=== PATIENT | female | born 1950 | race Caucasian/White ===

== ENCOUNTER → 2018-02-23 07:02 | Outpatient (CLI) | payer MEDICARE, SELFPAY ==
--- NOTE | 2018-02-23 | DI.ECHO.S_ITS ---
[facility] +---------+ : : [address] : [address] [place] : : : : [id number] : : : : Phone: [phone]+ Echocardiogram Report + + :Name: KALEB ROJO Study Date: 02/23/2018 Height: 67 in : :[facility] Exam Location: [facility] Weight: 168 lb : : Gender: Female BSA: 1.9 m2 : :: 1950 Age: 67 yrs BP: 210/100 mmHg: :Reason For Study: TIA : :Ordering Physician: : :Gerardo Friedman Performed By: Brigette Page : + + Interpretation Summary Left ventricular systolic function is normal without focal wall motion abnormalities with the the ejection fraction visually estimated to be 60-65%. There is borderline concentric left ventricular hypertrophy. There has been no significant change since the previous study. The right ventricle is normal in size and function and is unchanged compared to the previous study. The right ventricular systolic pressure is estimated to be at least 34 mmHg based on an estimated right atrial pressure of 3 mm Hg, and is similar compared to the previous study. Both atria are severely dilated. Measurements from the previous study are not available to allow for comparison. There is moderate aortic valve sclerosis that is slightly progressive compared to the previous study but there is no hemodynamically significant aortic stenosis. There is no other significant valvular heart disease. The ascending aorta is at the upper limits of normal in size. The patient was noted to be hypertensive during the study but was asymptomatic. A message was left with Dr. Friedman' office. Procedure: A two-dimensional transthoracic echocardiogram with color flow and Doppler was performed. The study quality was technically adequate. Comparison is made with the echocardiogram of 09/17/2008. The patient was in normal sinus rhythm during the exam. Left Ventricle: The left ventricle is normal in size. There is borderline concentric left ventricular hypertrophy. Left ventricular systolic function is normal without focal wall motion abnormalities. The ejection fraction is estimated to be 60-65%. Diastolic function could not be accurately assessed due to contradictory data. There has been no significant change since the previous study. Right Ventricle: The right ventricle is normal in size and function. This is unchanged compared to the previous study. Atria: Both atria are severely dilated. Measurements from the previous study are not available to allow for comparison. There is no Doppler evidence for an interatrial shunt. Mitral Valve: There is mild mitral annular calcification. The mitral valve leaflets appear borderline thickened, but open well. There is trace mitral regurgitation. This is slightly less prominent compared to the previous study. Aortic Valve: The aortic valve is trileaflet. There is moderate aortic valve sclerosis. The aortic valve is mildly calcified. This is slightly progressive compared to the previous study. Leaflet mobility is minimally reduced. There is no hemodynamically significant valvular aortic stenosis. There is trace aortic regurgitation. Tricuspid Valve: The tricuspid valve is normal in structure and function. There is trace tricuspid regurgitation. The right ventricular systolic pressure is estimated to be at least 34 mmHg based on an estimated right atrial pressure of 3 mm Hg. This is similar compared to the previous study. Pulmonic Valve: The pulmonic valve is not well visualized. There is trace pulmonic regurgitation. There is no other significant valvular heart disease. Great Vessels: The aortic root is normal size. The ascending aorta is at the upper limits of normal in size. The pulmonary is not well visualized. The IVC is of normal diameter and collapses greater than 50% with a sniff. This suggests a low right atrial pressure of 3 mm Hg. Pericardium/ Pleura There is no pericardial effusion. There is no pleural effusion. MMode/2D Measurements & Calculations LVIDd: 4.7 cm Ao root diam: 2.6 cm LVIDs: 3.1 cm asc Aorta Diam: 3.3 cm FS: 34.7 % EPSS: 0.60 cm IVSd: 0.98 cm LVPWd: 1.1 cm LV strickland. diameter/BSA (cm/m^2): 2.5 LV sys. diameter/BSA (cm/m^2): 1.6 LA A2 area: 36.0 cm2 RA long axis: 5.2 cm LA A4 area: 35.5 cm2 RA area: 16.9 cm2 LA length (vol): 6.2 cm RA vol: 47.0 ml LA vol: 175.0 ml RA : 25.0 ml/m2 LA vol index: 93.2 ml/m2 IVC diam: 1.7 cm RVD1 (basal): 4.0 cm Doppler Measurements & Calculations Ao V2 max: 205.8 cm/sec LVOT Max Omar: 100.1 cm/sec Ao V2 mean: 134.7 cm/sec LV V1 max P.0 mmHg Ao max P.9 mmHg LV V1 VTI: 21.5 cm Ao mean P.0 mmHg sev ratio: 0.52 Ao V2 VTI: 41.1 cm MV E max omar: 113.0 cm/sec TR max omar: 276.8 cm/sec MV A max omar: 65.6 cm/sec TR max P.7 mmHg MV E/A: 1.7 PA V2 max: 104.9 cm/sec Med Peak E' Omar: 4.4 cm/sec PA V2 mean: 76.4 cm/sec E/E' med: 25.5 PA mean P.5 mmHg Lat Peak E' Omar: 9.0 cm/sec PA Accel Time: 0.10 sec E/E' lat: 12.6 E/e' average: 19.0 MV dec time: 0.17 sec MV P1/2t: 50.3 msec MV P1/2t max omar: 114.2 cm/sec MVA(P1/2t): 4.4 cm2 Reading Physician:LAUREN
--- NOTE | 2018-02-23 | DI.MRI.S_ITS ---
PROCEDURE: MR STROKE Pre- and post-contrast brain MRI, non-contrast brain MR angiogram, pre- and postcontrast neck MR angiogram INDICATIONS: Left facial numbness TECHNIQUE: Brain: Noncontrast axial T1 spin echo, axial T2 fast spin echo, sagittal and axial FLAIR, coronal T2 fast spin echo, axial gradient echo, axial diffusion and ADC through the brain. After the administration of contrast, axial 3D VIBE of the cranial vasculature and brain. Brain MRA: Non-contrast 3-D time of flight MR angiogram, with multiple mcrfnaa-wmxdznkzr-jgiblpheru (MIP) reformats performed. Neck MRA: Axial and sagittal TruFISP through the neck. Coronal dynamic MR angiogram during administration of contrast in the arterial and venous phases, with 3-dimenstional ieodwio-ybrunumxa-pqwptfqtxx (MIP) reformats constructed from subtraction images. COMPARISON: None. FINDINGS: Image quality: Excellent. BRAIN: CSF spaces: Ventricles are normal in size and shape. Basal cisterns are patent. No extra-axial fluid collections. Brain: No intracranial bleeds or mass effects. Sahu-white matter interface is normal. An old lacunar infarct is suspected in the right villalobos radiata. There are multiple foci of T2 hyperintensity in the periventricular and subcortical white matter. Diffusion weighted images show no acute ischemic insults. Brainstem appears normal. Normal intravascular flow voids are present. No abnormal intracranial enhancement. Skull and face: Calvarial marrow signal is normal. Orbits appear normal. Sinuses: Mastoids are clear. There is marked mucosal thickening in frontal, ethmoid, sphenoid and maxillary sinuses bilaterally. There are air-fluid levels in maxillary sinuses bilaterally. Sphenoid sinuses are opacified. BRAIN MR ANGIOGRAM: Anterior circulation: There is moderate stenosis (~50%) in the cavernous segment of the right internal carotid artery. The cavernous segment of the left intracranial internal carotid artery appears irregular but no significant stenosis. The flow within the paired anterior cerebral arteries is normal and symmetric. The flow within the middle cerebral arteries is normal and symmetric. The anterior communicating artery is seen. No stenoses, occlusions, or aneurysms. 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 The visualized portions of the vertebral arteries demonstrate normal caliber, and join to form a normal appearing basilar artery. There is mild to moderate (30-50%) stenosis in the proximal posterior cerebral arteries bilaterally. No stenoses, occlusions, or aneurysms. NECK MR ANGIOGRAM: Carotids: Great vessels demonstrate a conventional anatomy as they arise from the aortic arch. The origins of the common carotid arteries appear patent. The calibers and courses of both common carotid arteries are normal. There is moderate short segmental stenosis in the proximal right internal card artery just beyond the bifurcation (30-50%). The left cervical internal carotid artery demonstrates normal course and caliber. Posterior circulation: The origins of the vertebral arteries appear patent. More superior portions of both vertebral arteries demonstrate normal course and caliber, and join to form a normal appearing basilar artery. 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 Miscellaneous: Subclavian arteries appear patent. Pre-contrast images through the neck show no soft tissue abnormalities. IMPRESSION: BRAIN MRI: 1. No acute intracranial abnormalities. 2. Suspect an old lacunar infarct in the right villalobos radiata. 3. Multiple foci of T2 hyperintensity in the periventricular white matter are most likely secondary to chronic microvascular ischemic changes. A differential diagnosis is demyelinating process such as multiple sclerosis. Recommend clinical correlation. 4. Severe bilateral pansinusitis. BRAIN MR ANGIOGRAM: 1. Moderate stenosis (~50%) in the cavernous segment of the right internal carotid artery. 2. Spqt-sd-modosfll stenosis (30-50%) of the proximal posterior cerebral arteries bilaterally. 3. 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 Recommend neurosurgical consultation. NECK MR ANGIOGRAM: 1. Moderate stenosis (30-50%) of the proximal right proximal internal carotid artery just beyond the carotid bifurcation. 2. Normal left cervical common and internal carotid arteries. 3. Normal cervical vertebral arteries bilaterally. Dictated by: Washington Martino M.D. on 02/23/2018 at 9:01 Transcribed by: MELANY on 02/23/2018 at 9:28 Approved by: Washington Martino M.D. on 02/23/2018 at 18:24
== END ==
PROVIDERS: Family Provider Family Medicine; PCP Family Medicine; Visit Provider Family Medicine
DX: G45.9 Transient cerebral ischemic attack, unspecified (principal); I35.8 Other nonrheumatic aortic valve disorders; I65.21 Occlusion and stenosis of right carotid artery; I66.23 Occlusion and stenosis of bilateral posterior cerebral arteries; I67.1 Cerebral aneurysm, nonruptured; J32.4 Chronic pansinusitis; R20.0 Anesthesia of skin
CPT/HCPCS: 70553; 93306; A9579

== ENCOUNTER 2018-04-01 10:38 | Emergency (ER) | payer MEDICARE, SELFPAY ==
[2018-04-01 10:49] VITALS: BP 180/85; PULSE 71; RESP 16; O2SAT 100; BMI 25.3
--- NOTE | 2018-04-01 10:52 | DI.CT.S_ITS ---
PROCEDURE: CT HEAD/BRAIN WO CON INDICATIONS: left hand and arm numbess, improving hx of cva TECHNIQUE: Noncontrast 4.5 mm thick angled axial sections acquired from the foramen magnum to the vertex, with coronal and sagittal reformats. For radiation dose reduction, the following was used: automated exposure control, adjustment of mA and/or kV according to patient size. COMPARISON: [facility], , MR STROKE, 02/23/2018, 7:37. FINDINGS: Image quality: Excellent. CSF spaces: Basal cisterns are patent. No extra-axial fluid collections. The ventricles are symmetric in size and shape. Brain: No intracranial hemorrhage, mass, or mass effect. There are subcortical, periventricular and deep white matter hypodensities consistent with mild chronic small vessel ischemic changes. There is a more focal hypodensity in the left basal ganglia suggestive of a small lacunar infarct of indeterminate acuity. A focal hypodensity in the left caudate head is compatible with a prior lacunar infarct and appears similar to the prior MRI given differences in technique. There is intracranial internal carotid artery atherosclerosis. Skull and face: Calvarium and visualized facial bones are intact, without suspicious lesions. Sinuses: Visualized sinuses demonstrate extensive mucosal thickening and opacification of the frontal, ethmoid, and right sphenoid sinuses with moderate thickening in the visualized bilateral maxillary sinuses. Air-fluid levels also demonstrated in the maxillary sinuses suggestive of acute sinusitis. Mastoid air cells are clear. IMPRESSION: 1. No acute intracranial hemorrhage or mass effect. 2. Small focal hypodensity in the left basal ganglia suggestive of a small lacunar infarct of indeterminate acuity. If there is clinical suspicion for an acute process, further evaluation may be obtained with MRI. 3. Mild chronic white matter small vessel ischemic changes. 4. Extensive sinus mucosal disease redemonstrated with probable acute sinusitis in the maxillary sinuses. Dictated by: Todd Torrez M.D. on 04/01/2018 at 11:35 Approved by: Todd Torrez M.D. on 04/01/2018 at 11:39
[2018-04-01 11:05] LABS: Add Manual Diff / Slide Review NO; Basophils Absolute Auto 100 /uL (0-100); Basophils Percent Auto 0.9 % (0-2); Eosinophils Absolute Auto 300 /uL (0-450); Eosinophils Percent Auto 2.7 % (2-4); Hematocrit 36.8 % (36-46); Hemoglobin 11.9 g/dL (12.0-16.0); Lymphocytes Absolute Auto 2900 /uL (1100-4500); Lymphocytes Percent Auto 29.4 % (25-40); Mean Corpuscular HGB Conc 32.4 % (30-36); Mean Corpuscular Hemoglobin 27.6 PG (26-34); Mean Corpuscular Volume 85.2 fL (80-100); Monocytes Absolute Auto 1200 /uL (0-900); Monocytes Percent Auto 12.2 % (3-14); Neutrophils Absolute Auto 5400 /uL (1500-7000); Neutrophils Percent Auto 54.8 % (50-75); Platelet Count 233 X10^3/uL (150-400); Red Blood Cell Count 4.32 X10^6/uL (4.0-5.2); Red Cell Distribution Width 13.9 % (11.6-14.8); White Blood Cell Count 9.8 X10^3/uL (4.5-11.0)
[2018-04-01 11:10] LABS: INR 0.9 (0.9-1.3)
--- NOTE | 2018-04-01 11:11 | ED_ITS ---
HPI - Neuro Symptoms/Deficit General Chief Complaint: Neuro Symptoms/Deficit Stated Complaint: LT ARM AND HAND NUMB,HX OF STROKE Time Seen by Provider: 04/01/18 10:52 Source: patient Mode of arrival: ambulatory Limitations: no limitations History of Present Illness HPI Narrative: patient is a 68-year-old female who presents with left arm tingling. 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 She says today she was meditating with her left hand on top of her right. She realized that she did not know what was so cold on top of her right hand it was her left hand. She had some numbness tingling down her left hand she says is getting better she feels like her left hand is just cold and now. She has had some left-sided facial numbness and on for awhile in fact she had an MRI in 02/23/2017 which Did not show anything acute. patient states that she cannot take any anti-platelet medications due to a bleeding problem and aneurysm that she Onset (ago): minute(s) Location: left arm Severity: mild Quality: numb and improving On Anticoagulants: No Related Data Home Medications Medication Instructions Recorded Confirmed Metoprolol Succinate (Toprol Xl) 0 mg PO *DAILY #0 08/14/05 Allergies Allergy/AdvReac Type Severity Reaction Status Date / Time NSAIDS (Non-Steroidal Allergy Verified 04/01/18 10:49 Anti-Inflamma Review of Systems Review of Systems ROS Unobtainable: All systems reviewed & are unremarkable except as noted in HPI and below Constitutional Denies chills, Denies fever(s), Denies lethargy and Denies weakness Cardiovascular Denies chest pain, Denies irregular heart rhythm, Denies lightheadedness, Denies palpitations and Denies orthopnea Gastrointestinal Gastrointestinal: Denies abdominal pain, Denies change in bowel habits, Denies diarrhea, Denies nausea and Denies vomiting Genitourinary Denies hematuria, Denies flank pain, Denies urinary incontinence and Denies urinary urgency Musculoskeletal Denies back pain, Denies muscle weakness, Reports numbness and Reports tingling Integumentary/Breasts Denies pruritus, Denies erythema, Denies rash and Denies wounds Neurologic Reports as per HPI, Reports numbness, Reports tingling and Denies weakness Endocrine Denies palpitations PFSH Medical History CVA (cerebral vascular accident) (Acute) Hypertension (Acute) Social History Smoking Status: Current every day smoker Social History Smoking Status: Current every day smoker Exam Initial Vital Signs Initial Vital Signs: Vital Signs Pulse Rate 71 04/01/18 10:49 Respiratory Rate 16 04/01/18 10:49 Blood Pressure 180/85 H 04/01/18 10:49 Pulse Oximetry 100 04/01/18 10:49 GENERAL: Pleasant alert well-appearing female alert oriented x3 HEENT: Head atraumatic,EOMI, pupils reactive, face symmetric, CARDIOVASCULAR: Regular rate and rhythm without murmurs, rubs or gallops. RESPIRATORY: Breath sounds equal bilaterally, no wheezes rales or rhonchi. ABDOMEN: Soft, nontender. Normoactive bowel sounds all 4 quadrants. No guarding or rebound. EXTREMITIES: Normal range of motion, no clubbing or edema. Neurovascularly intact NEUROLOGICAL: Alert and oriented x4.Normal gait and speech. Cranial nerves II through XII grossly intact. Good qusfkp-tb-aszc, good mfhd-vi-eebs, strength equal bilaterally, no dysarthria or aphasia, sensation in tact to soft touch bilaterally, no visual changes, no facial droop SKIN: Warm, dry, no laceration, no petechiae, no rashes or lesions. Scores NIH Stroke Scale Level of Conciousness: Alert, keenly responsive Ask month/age: Answers both questions correctly. Open/close eyes, close hand: Performs both tasks correctly Best gaze horizontal: Normal Visual romero: No visual loss Facial palsy: Normal symetrical movement Left arm drift: No drift for full 10 sec Right arm drift: No drift for full 10 sec Left leg drift: No drift for full 10 sec Right leg drift: No drift for full 10 sec Limb ataxia: Absent Sensory on face/arms/legs: Normal, no sensory loss Best language: No aphasia, normal Dysarthria: Normal Extinction or inattention: No abnormality Total NIH Stroke scale score: 0 Course Orders Ordered: ED Orders 04/01/18 10:52 CT head/brain wo con Stat EKG-12 Lead Stat 04/01/18 10:55 Complete Blood Count AUTO DIFF Stat Comprehensive Metabolic Panel Stat Partial Thromboplastin Time Stat Prothrombin Time INR Stat Troponin I Stat Discontinued Medications Sodium Chloride (Normal Saline 0.9%) 1,000 mls @ 150 mls/hr IV CONT BILLY Last Infusion: 04/01/18 13:06 Dose: 0 mls/hr Admin: 04/01/18 11:24 Dose: 150 mls/hr Vital Signs - 8 hr 04/01/18 10:49 04/01/18 12:04 04/01/18 13:07 Pulse Rate 71 91 H Respiratory Rate 16 16 Blood Pressure 180/85 H 166/67 H Blood Pressure [Right Arm] 138/112 H Pulse Oximetry 100 99 MDM - Neuro Symptoms/Deficit Lab Data Attestation: I reviewed the patient's lab results. Result diagrams: 04/01/18 10:55 04/01/18 10:55 Lab Results 04/01/18 04/01/18 04/01/18 Range/Units 10:55 10:55 10:55 WBC 9.8 (4.5-11.0) X10^3/uL RBC 4.32 (4.0-5.2) X10^6/uL Hgb 11.9 L (12.0-16.0) g/dL Hct 36.8 (36-46) % MCV 85.2 (80-100) fL MCH 27.6 (26-34) PG MCHC 32.4 (30-36) % RDW 13.9 (11.6-14.8) % Plt Count 233 (150-400) X10^3/uL Neut % (Auto) 54.8 (50-75) % Lymph % (Auto) 29.4 (25-40) % [place] % (Auto) 12.2 (3-14) % Eos % (Auto) 2.7 (2-4) % Baso % (Auto) 0.9 (0-2) % Neut # (Auto) 5400 (8475-8315) /uL Lymph # (Auto) 2900 (9705-5190) /uL Winkler # (Auto) 1200 H (0-900) /uL Eos # (Auto) 300 (0-450) /uL Baso # (Auto) 100 (0-100) /uL PT 10.0 L (10.1-12.7) SECONDS INR 0.9 (0.9-1.3) APTT 28 (26.4-36.2) SECONDS Sodium 137 (137-145) mmol/L Potassium 4.9 (3.4-5.1) mmol/L Chloride 105 (98-107) mmol/L Carbon Dioxide 24 (22-32) mmol/L BUN 39 H (7-17) mg/dL Creatinine 1.40 H (0.52-1.04) mg/dL Estimated GFR 37.4 L (>60) mL/min BUN/Creatinine Ratio 27.9 H (6-22) Glucose 99 (80-110) mg/dL Calcium 9.4 (8.4-10.2) mg/dL Total Bilirubin 0.4 (0.2-1.3) mg/dL AST 36 (14-36) IU/L ALT 26 (9-52) IU/L Alkaline Phosphatase 79 (38-126) U/L Troponin I < 0.012 (0.01-0.034) ng/mL Total Protein 7.3 (6.3-8.2) g/dL Albumin 4.4 (3.5-5.0) g/dL Globulin 2.9 (1.7-4.1) g/dL Albumin/Globulin Ratio 1.5 (1.0-2.8) Urine Dip Bedside Urine Glucose Negative Bedside Urine Bilirubin - Negative Bedside Urine Ketone - Negative Urine Specific [place] 1.015 Bedside Urine Occult Blood - Negative Bedside Urine pH 6.0 Bedside Urine Protein - Negative Bedside Urine Urobilinogen - Negative Bedside Urine Nitrite - Negative Bedside Urine Leukocytes - Negative Esterase ECG Data Attestation: I personally reviewed and interpreted this ECG as follows: Prior ECG tracings: not available for review Interpretation: normal sinus rhythm rate [address] changes no T-wave inversions. MDM Narrative Medical decision making narrative: patient's symptoms are resolving no longer a tPA candidate. His also with her history of aneurysm her her hesitant about tPA. 12:[address] Friedman he agrees to see patient in clinic tomorrow recommend adjusting some of her blood pressure medications if at all possible. The patient understands risk of stroke increasing. She is had a yeast 2 strokes and not able to take any anti-platelet medication. She would prefer to follow up with her PCP rather than stay in the hospital. Discharge Plan Departure Patient Disposition: Home Clinical Impression: Transient cerebral ischemia Qualifiers: Transient cerebral ischemia type: other Qualified Code(s): G45.8 - Other transient cerebral ischemic attacks and related syndromes Discharge Date/Time: 04/01/18 13:07 Interventions: ED Discharge Assessment Last Done: 04/01/18 13:07 Instructions: DI for Transient Ischemic Attack Activity Restrictions/Additional Instructions: *You have been diagnosed with Possible mini-stroke *What to do: stop smoking, modifier change diet *Continue to take medications as directed - please discussed with Dr. Friedman tomorrow your blood pressure medications *Follow up with your primary care provider , Dr. Friedman tomorrow called 1st thing in the morning to schedule appointment *Return to ER if you should have arm or leg weakness, difficulty speaking, facial droop or any new, worsening or concerning symptoms Prescriptions: No Action Metoprolol Succinate (Toprol Xl) PO *DAILY Qty: 0 RF: 0 Referrals: Gerardo Friedman MD [Primary Care Provider] -
[2018-04-01 11:13] LABS: PTT Partial Thromboplastin Tim 28 SECONDS (26.4-36.2)
[2018-04-01 11:14] LABS: Alanine Aminotransferase 26 IU/L (9-52); Albumin 4.4 g/dL (3.5-5.0); Albumin Globulin Ratio 1.5 (1.0-2.8); Alkaline Phosphatase 79 U/L (38-126); Aspartate Aminotransferase 36 IU/L (14-36); BUN Creatinine Ratio 27.9 (6-22); Bilirubin Total 0.4 mg/dL (0.2-1.3); Blood Urea Nitrogen 39 mg/dL (7-17); Calcium 9.4 mg/dL (8.4-10.2); Carbon Dioxide 24 mmol/L (22-32); Chloride 105 mmol/L (98-107); Estimated Glomerular Filt Rate 37.4 mL/min (>60); Globulin 2.9 g/dL (1.7-4.1); Glucose 99 mg/dL (80-110); HEMOLYSIS 15 (0-50); Potassium 4.9 mmol/L (3.4-5.1); Sodium 137 mmol/L (137-145); Total Protein 7.3 g/dL (6.3-8.2)
[2018-04-01] MEDS: SODIUM CHLORIDE 0.9% 1,000 ML 150 ML IV (11:24)
[2018-04-01 11:26] LABS: Troponin I < 0.012 ng/mL (0.01-0.034)
[2018-04-01 12:04] VITALS: BP 138/112
[2018-04-01 13:07] VITALS: BP 166/67; PULSE 91; RESP 16; O2SAT 99
== END 2018-04-01 13:07 | disposition home or self-care (01) ==
PROVIDERS: Emergency Provider Emergency Medicine; Family Provider Family Medicine; PCP Family Medicine
DX: R20.2 Paresthesia of skin (principal)
CPT/HCPCS: 36591; 70450; 80053; 81003; 84484; 85025; 85610; 85730; 93005; 99283

== ENCOUNTER 2018-04-01 21:38 | Inpatient (IN) | payer MEDICARE, SELFPAY ==
[2018-04-01 21:41] VITALS: BP 162/69; PULSE 65; RESP 18; TEMP 36.2; O2SAT 96; BMI 25.7
--- NOTE | 2018-04-01 22:08 | ED.NEUROSD ---
HPI - Neuro Symptoms/Deficit General Chief Complaint: Neuro Symptoms/Deficit Stated Complaint: says having a series of TIAs Time Seen by Provider: 04/01/18 22:08 Source: patient Mode of arrival: ambulatory Limitations: no limitations History of Present Illness HPI Narrative: The patient has a history of hypertension, and hyperlipidemia. Her mother has a history of strokes. The patient had a stroke about 8 years ago, with right-sided deficits. She presented with a headache of 3 days before the diagnosis was clarified. She has no deficits. She saw her physician, Dr. Friedman recently and a brain MRI was ordered because the patient's complaint that she was not feeling well and felt something was wrong. She had no neurologic deficits. A brain MRI from 02/23/2018 revealed no acute intracranial abnormalities. There was an old lacunar infarct at the right villalobos radiata moderate stenosis was noted in the right internal carotid cavernosa segment and mild to moderate stenosis in the proximal posterior cerebral arteries. Moderate stenosis was present in the proximal right internal carotid. 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 Although she had a headache when she had her initial CVA, there was no evidence of bleed. She has been compliant with medications. She developed left-sided weakness/numbness earlier today, she checked in here and was evaluated. On the initial exam NIHSS evaluation was 0. She is in normal sinus rhythm, there were no significant lab findings. A noncontrast head CT shows no intracranial hemorrhage or mass effect. Again there was a suggestion of a small lacunar infarct. The patient was negotiating not go home, outpatient follow-up with Dr. Friedman for tomorrow was arranged. She did not receive aspirin because of a prior episode of anaphylaxis. She was previously on Plavix and developed a large vaginal hematoma. She has been on no anticoagulation for some time now. After returning home she had another event. She developed dysarthria and left arm and left leg numbness. She had no left arm or left leg weakness. She was with a friend, no facial droop was noted. She has seen 2 hr after onset, at the time of her evaluation symptoms have resolved. She feels she is back to baseline/normal. Both advanced today revealed left-sided lesion, suggested of MCA circulation. She had no headache. She had no posterior circulation type symptoms. She complains of no numbness or weakness. She has no confusion. Her speech is normal. Her vision is normal. On Anticoagulants: No Related Data Home Medications Medication Instructions Recorded Confirmed Metoprolol Succinate (Toprol Xl) 0 mg PO *DAILY #0 08/14/05 Allergies Allergy/AdvReac Type Severity Reaction Status Date / Time NSAIDS (Non-Steroidal Allergy Verified 04/01/18 10:49 Anti-Inflamma Review of Systems Constitutional Denies chills, Denies fever(s), Denies lethargy and Denies weakness Eyes Denies change in vision, Denies eye discharge, Denies irritation and Denies loss of vision ENT Ears, Nose, Mouth, and Throat: Denies change in voice, Denies vertigo, Denies dizziness, Denies neck pain and Denies sore throat Cardiovascular Denies chest pain, Denies irregular heart rhythm, Denies lightheadedness, Denies palpitations, Denies dyspnea, Denies dyspnea on exertion and Denies orthopnea Respiratory Denies cough, Denies dyspnea, Denies dyspnea on exertion and Denies wheezing Gastrointestinal Gastrointestinal: Denies abdominal pain, Denies change in bowel habits, Denies diarrhea, Denies nausea and Denies vomiting Musculoskeletal Denies back pain, Denies myalgias, Denies neck pain, Reports numbness and Denies tingling Integumentary/Breasts Denies erythema and Denies rash Neurologic Denies confusion, Denies vertigo, Denies dizziness, Denies loss of vision, Reports numbness, Denies tingling and Denies weakness Psychiatric Denies anxiety, Denies confusion and Denies depression Endocrine Denies palpitations Hematologic/Lymphatic Reports easy bleeding Allergic/Immunologic Denies wheezing [facility] Medical History Hyperlipidemia (Acute) TIA (transient ischemic attack) (Acute) CVA (cerebral vascular accident) (Acute) Hypertension (Acute) Surgical History No history of previous surgery (Acute) Family History Mother CVA (cerebral vascular accident) Social History Smoking Status: Current every day smoker Family History Mother CVA (cerebral vascular accident) Social History Smoking Status: Current every day smoker Exam Initial Vital Signs Initial Vital Signs: Vital Signs Temperature 97.1 F L 04/01/18 21:41 Pulse Rate 65 04/01/18 21:41 Respiratory Rate 18 04/01/18 21:41 Blood Pressure 162/69 H 04/01/18 21:41 Pulse Oximetry 96 04/01/18 21:41 Const General: cooperative and well developed Nutritional Appearance: well nourished Orientation: alert, awake, oriented x3 and not confused [facility] Head: normocephalic and atraumatic Nose: external nose normal Face and sinus: sinuses nontender and face symmetric Mouth: oral mucosae normal and moist mucous membranes Teeth and gingiva: dentition normal Throat: tonsils normal and uvula midline Scores NIH Stroke Scale Level of Conciousness: Alert, keenly responsive Ask month/age: Answers both questions correctly. Open/close eyes, close hand: Performs both tasks correctly Best gaze horizontal: Normal Visual romero: No visual loss Facial palsy: Normal symetrical movement Left arm drift: No drift for full 10 sec Right arm drift: No drift for full 10 sec Left leg drift: No drift for full 10 sec Right leg drift: No drift for full 10 sec Limb ataxia: Absent Sensory on face/arms/legs: Normal, no sensory loss Best language: No aphasia, normal Dysarthria: Normal Extinction or inattention: No abnormality Total NIH Stroke scale score: 0 Course Course Narrative: The patient has symptoms consistent with a 2nd TIA over the last several hours. Once again she is fortunately asymptomatic. She has risk factors of hypertension and hyperlipidemia, she is a nonsmoker. She is not diabetic. Apparently her mother had a significant family history. I discussed the case with Neurology with [facility], Dr. Pfeiffer. Aspirin was not given due to anaphylaxis. Her prior bleeding issue with Plavix was discussed, deferred for now. A noncontrast CT is unchanged. A brain/neck CTA was done in follow-up. The brain is stable unchanged. CTA of the neck was interpreted as high-grade stenosis involving the right carotid bulb and proximal right internal carotid artery estimated at 80-90%. Several areas of 60-70% stenosis involving the distal left common artery and carotid bulbs and proximal internal carotid artery at the bifurcation are noted. There is no site of complete occlusion, dissection or aneurysm in the carotid arteries or vertebral arteries. The patient's consult with Neurosurgery regarding the posterior circulation aneurysm. She was felt to be nonsurgical due to the size at that time. The MRI indicated carotid stenosis, but not to this severity. She is currently asymptomatic. She did not take blood pressure medications earlier today, her blood pressure is currently 140 systolic. Her blood pressure medications will be held at this time. She will be admitted to telemetry. Dr. Friedman will have the opportunity to electronically forward the current images and discuss game plan with a neurologist to help give additional guidance into selecting a anticoagulant medication and utilizing that medication while under hospital care. Furthermore the conversation will necessarily include vascular surgery due to the carotid artery disease. Orders Ordered: ED Orders 04/01/18 23:26 CT head/brain wo con Stat 04/01/18 23:28 EKG-12 Lead Stat 04/01/18 23:45 Basic Metabolic Panel Stat Complete Blood Count AUTO DIFF Stat Prothrombin Time INR Stat 04/02/18 CT angio head and neck Stat Discontinued Medications Sodium Chloride (Normal Saline 0.9%) 1,000 mls @ 1,000 mls/hr IV BOLUS ONE Stop: 04/02/18 00:27 Last Admin: 04/01/18 23:40 Dose: 1,000 mls/hr Vital Signs - 8 hr 04/01/18 21:41 04/01/18 22:13 04/01/18 22:30 Temperature 97.1 F L Pulse Rate 65 17 L 67 Respiratory Rate 18 16 15 Blood Pressure 162/69 H Blood Pressure [Left Arm] 133/73 147/75 H Pulse Oximetry 96 98 96 04/01/18 23:11 04/02/18 00:16 04/02/18 00:35 Temperature Pulse Rate 63 71 75 Respiratory Rate 20 15 14 Blood Pressure Blood Pressure [Left Arm] 130/63 140/78 148/71 H Pulse Oximetry 99 99 98 04/02/18 01:35 Temperature Pulse Rate 70 Respiratory Rate 18 Blood Pressure Blood Pressure [Left Arm] 156/70 H Pulse Oximetry 98 MDM - Neuro Symptoms/Deficit Lab Data Result diagrams: 04/01/18 23:45 04/01/18 23:45 Lab Results 04/01/18 04/01/18 04/01/18 Range/Units 23:45 23:45 23:45 WBC 8.3 (4.5-11.0) X10^3/uL RBC 4.25 (4.0-5.2) X10^6/uL Hgb 11.8 L (12.0-16.0) g/dL Hct 36.1 (36-46) % MCV 84.9 (80-100) fL MCH 27.8 (26-34) PG MCHC 32.7 (30-36) % RDW 13.9 (11.6-14.8) % Plt Count 228 (150-400) X10^3/uL Neut % (Auto) 49.3 L (50-75) % Lymph % (Auto) 33.7 (25-40) % [place] % (Auto) 11.4 (3-14) % Eos % (Auto) 4.5 H (2-4) % Baso % (Auto) 1.1 (0-2) % Neut # (Auto) 4100 (6852-2096) /uL Lymph # (Auto) 2800 (4630-2620) /uL [place] # (Auto) 900 (0-900) /uL Eos # (Auto) 400 (0-450) /uL Baso # (Auto) 100 (0-100) /uL PT 10.1 (10.1-12.7) SECONDS INR 0.9 (0.9-1.3) Sodium 139 (137-145) mmol/L Potassium 4.0 (3.4-5.1) mmol/L Chloride 107 (98-107) mmol/L Carbon Dioxide 24 (22-32) mmol/L BUN 35 H (7-17) mg/dL Creatinine 1.40 H (0.52-1.04) mg/dL Estimated GFR 37.4 L (>60) mL/min BUN/Creatinine Ratio 25.0 H (6-22) Glucose 92 (80-110) mg/dL Calcium 9.3 (8.4-10.2) mg/dL Discharge Plan Departure Patient Disposition: Admitted as Observation Clinical Impression: Transient cerebral ischemia, Bilateral carotid artery disease, Bilateral carotid artery stenosis Admit Date/Time: 04/02/18 02:26 Admit Provider: Gerardo Friedman
[2018-04-01 22:13] VITALS: BP 133/73; PULSE 17; RESP 16; O2SAT 98
[2018-04-01 22:30] VITALS: BP 147/75; PULSE 67; RESP 15; O2SAT 96
[2018-04-01 23:11] VITALS: BP 130/63; PULSE 63; RESP 20; O2SAT 99
--- NOTE | 2018-04-01 23:26 | DI.CT.S_ITS ---
PROCEDURE: CT HEAD/BRAIN WO CON INDICATIONS: Repeat left TIA TECHNIQUE: Noncontrast 4.5 mm thick angled axial sections acquired from the foramen magnum to the vertex, with coronal and sagittal reformats. For radiation dose reduction, the following was used: automated exposure control, adjustment of mA and/or kV according to patient size. COMPARISON: None. FINDINGS: Image quality: Excellent. CSF spaces: Basal cisterns are patent. No extra-axial fluid collections. The ventricles are symmetric in size and shape. Brain: No intracranial bleeds or masses. There is cerebral volume loss for age, with resultant ventricular and sulcal prominence. There are periventricular and deep white matter chronic small vessel ischemic changes. Chronic, small right parietal infarct is noted. Old left caudate head. right villalobos radiata. Small hypo-density noted in the left parietal lobe which could represent a small volume averaging artifact versus small subacute lacunar infarct. There is intracranial internal carotid artery and vertebral artery atherosclerosis. Skull and face: Calvarium and visualized facial bones appear intact, without suspicious lesions. Sinuses: Mucosal thickening noted in the maxillary sinuses, the ethmoid air cells and the right sphenoid sinus. The mastoids are clear. IMPRESSION: 1. Small hypodensity in the left parietal lobe compatible with volume artifact versus small subacute lacunar infarct. 2. Old, small, infarct involving the right parietal lobe, right villalobos radiata in the left caudate head. 3. No intracranial hemorrhage. Dictated by: Vale Baker MD, PhD on 04/02/2018 at 7:27 Approved by: Vale Baker MD, PhD on 04/02/2018 at 7:31
[2018-04-01] MEDS: SODIUM CHLORIDE 0.9% 1,000 ML 1000 ML IV (23:40)
[2018-04-01 23:57] LABS: Add Manual Diff / Slide Review NO; Basophils Absolute Auto 100 /uL (0-100); Basophils Percent Auto 1.1 % (0-2); Eosinophils Absolute Auto 400 /uL (0-450); Eosinophils Percent Auto 4.5 % (2-4); Hematocrit 36.1 % (36-46); Hemoglobin 11.8 g/dL (12.0-16.0); Lymphocytes Absolute Auto 2800 /uL (1100-4500); Lymphocytes Percent Auto 33.7 % (25-40); Mean Corpuscular HGB Conc 32.7 % (30-36); Mean Corpuscular Hemoglobin 27.8 PG (26-34); Mean Corpuscular Volume 84.9 fL (80-100); Monocytes Absolute Auto 900 /uL (0-900); Monocytes Percent Auto 11.4 % (3-14); Neutrophils Absolute Auto 4100 /uL (1500-7000); Neutrophils Percent Auto 49.3 % (50-75); Platelet Count 228 X10^3/uL (150-400); Red Blood Cell Count 4.25 X10^6/uL (4.0-5.2); Red Cell Distribution Width 13.9 % (11.6-14.8); White Blood Cell Count 8.3 X10^3/uL (4.5-11.0)
[2018-04-01 23:59] LABS: INR 0.9 (0.9-1.3); Prothrombin Time 10.1 SECONDS (10.1-12.7)
[2018-04-02] VITALS (11 sets, daily range): BP systolic 111–192; BP diastolic 58–93; PULSE 57–75; RESP 14–21; TEMP 36.4–36.8; O2SAT 95–100; BMI 25.7
--- NOTE | 2018-04-02 | DI.CT.S_ITS ---
PROCEDURE: CT ANGIO HEAD AND NECK INDICATIONS: repeat for TIA's TECHNIQUE: Pre-contrast 4.5 mm thick sections acquired from the foramen magnum to the vertex. After the administration of intravenous contrast, 1 mm thick sections acquired from the aortic arch through the [place] of [place]. Post-contrast 4.5 mm thick sections then re-acquired from the foramen magnum to the vertex. 3-dimensional bouvgez-livnvrqum-miumryemly (MIP) and/or volume rendering reformats were acquired of the central intracranial vasculature and neck separately. COMPARISON: [facility], CT, CT HEAD/BRAIN WO CON, 04/01/2018, 23:22. FINDINGS: Image quality: Excellent. BRAIN: CSF spaces: Ventricles are normal in size and shape. Basal cisterns are patent. No extra-axial fluid collections. Brain: No midline shift. No intracranial bleeds or masses. Old, small right parietal infarct is noted. Old, small lacunar infarcts noted in the right villalobos radiata and the left caudate head. Small hypodensity is redemonstrated in the left parietal lobe suspicious for small subacute infarct. Skull and face: Calvarium and facial bones appear intact, without suspicious lesions. Orbits appear normal. Sinuses: Mucosal thickening noted in the maxillary sinuses, the ethmoid air cells, the right sphenoid sinus and the left frontal sinus. 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 The mastoids are clear. HEAD CT ANGIOGRAPHY: Anterior circulation: Intracranial internal carotid arteries are normal in flow. Atherosclerotic calcifications noted in the cavernous, clinoid and ophthalmic segments of the internal carotid arteries bilaterally which cause multifocal high-grade stenoses. The flow within the paired anterior cerebral arteries is normal and symmetric. The flow within the middle cerebral arteries is normal and symmetric. The anterior communicating artery is seen. No aneurysms are seen. Posterior circulation: Atherosclerotic calcifications noted in the V4 segments of the vertebral arteries bilaterally which causes mild multifocal stenoses. Flow within the posterior cerebral arteries is normal and symmetric. Right posterior cerebral artery has a origin which is a congenital anatomic variant. No aneurysms are seen. Dural sinuses demonstrate normal postcontrast enhancement. NECK CT ANGIOGRAPHY: Carotid system: The great vessels demonstrate a conventional anatomy as they arise from the aortic arch. The origins of the common carotid arteries appear patent. The common carotid arteries demonstrate normal caliber and courses. Calcified and noncalcified atherosclerotic plaque noted in the origins of the internal carotid arteries bilaterally which causes high grade, approximately 90% stenosis of the origin of the right internal carotid artery a moderate to high-grade, approximately 60-70% stenosis of the left internal carotid artery Posterior circulation: Atherosclerotic calcifications noted at the origin of the right vertebral artery which causes mild stenosis. Origin of the left vertebral artery is fully patent.. The more superior extracranial portions of both vertebral arteries also demonstrate normal courses and calibers. They join to form a normal appearing basilar artery. Soft tissues: Visualized neck soft tissues demonstrate no suspicious abnormalities. Bones: No suspicious bony lesions. Spine degenerative disc disease and facet arthropathy. Visualized cervical spine appears normally aligned. IMPRESSION: 1. Small hypodensity in left parietal lobe concerning for subacute infarct. 2. Chronic, small right parietal, right villalobos radiata lacunar infarct and left caudate head lacunar infarct. 3. No intracranial hemorrhage. 4. High-grade, greater than 90% stenosis of the origin of the right internal carotid artery. Moderate to high-grade stenosis, possibly 60-70% stenosis of the origin of the left internal. 5. Multifocal high grade stenoses involving the cavernous, clinoid and ophthalmic segments of the internal carotid arteries bilaterally. There are 6. No large vessel occlusion, vascular dissection or cerebral aneurysm identified. Any quantitative measurements of stenosis were performed using NASCET criteria. Dictated by: Vale Baker MD, PhD on 04/02/2018 at 8:32 Approved by: Vale Baker MD, PhD on 04/02/2018 at 8:45
[2018-04-02 00:03] LABS: Blood Urea Nitrogen 35 mg/dL (7-17); Calcium 9.3 mg/dL (8.4-10.2); Carbon Dioxide 24 mmol/L (22-32); Chloride 107 mmol/L (98-107); Estimated Glomerular Filt Rate 37.4 mL/min (>60); Glucose 92 mg/dL (80-110); HEMOLYSIS 17 (0-50); Sodium 139 mmol/L (137-145)
[2018-04-02] MEDS: SODIUM CHLORIDE 0.9% 1,000 ML 125 ML IV (03:43)
--- NOTE | 2018-04-02 04:06 | PC.NURSE ---
Pt arrived on unit at approx 0255, is A and O x 4, ambulatory, and denies any nausea, pain, numbness or deficit in any extremity, appeared to be equal and bilateral in strength. She states she wears contacts and is near sighted in one eye and far sighted in the other but that her vision is at baseline. She is reading a novel. She has voided clear yellow, and has + BTs. Sinus ken on telemetry. LS clear. She states she is a former tobacco smoker, a current occasional marijuana smoker and a daily light drinker.
[2018-04-02] MEDS: CLOPIDOGREL 75 MG TABLET PO (09:33)
[2018-04-02] MEDS: CITALOPRAM 10 MG TABLET 5 MG PO (13:13)
[2018-04-02] MEDS: ATENOLOL 50 MG TABLET 100 MG PO (13:15)
[2018-04-02] MEDS: AMLODIPINE 5 MG TABLET PO ×2 (13:15→19:45)
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
--- NOTE | 2018-04-02 15:11 | CM.DANOTE ---
Discharge Planning/Care Management DCP: assessment: Case received and EMR reviewed. Pt is a 68 year old female who admitted this morning: about 3 AM to care of PCP: Dr. Friedman. Payer: Medicare and [employer]. RN coordinator Pepper Wong now reports that Dr. Friedman has called and he is transferring pt to [facility] for a higher level of care. Pepper confirms that there is an accepting physician; the RN coordinators will work with [facility] on securing a bed for pt. P: as per above...will follow up tomorrow if pt is still here. Advanced directive, confirm from FAMILY Start: 04/02/18 03:35 Freq: Q24H Status: Active Protocol: Document 04/02/18 03:35 AMM (Rec: 04/02/18 13:10 AMM [id number]) Advance Directive, confirm on record Time 13:10 Person contacted patient Copy received No Time 13:10 Person contacted son Copy received No CM Discharge Assessment Start: 04/02/18 15:10 Freq: Status: Active Protocol: Document 04/02/18 15:10 ITV (Rec: 04/02/18 15:11 ITV [id number]) Discharge Planning Assessment History Provided By Medical Record Prior Living Arrangements House Household Members friend(s) Review Status In Process Next Review Type Continued Stay Review
[2018-04-02] MEDS: ATENOLOL 50 MG TABLET PO (19:45)
[2018-04-02] MEDS: BENAZEPRIL 20 MG TABLET 40 MG PO (19:46)
[2018-04-02] MEDS: ALPRAZolam 0.5 MG TABLET 1 MG PO (19:52)
--- NOTE | 2018-04-02 22:56 | PC.NURSE ---
DC note: 1999: BP elevated tonight, pt actively ambulating around room with rachel phone, talking quickly, appears guarded. Ox3, NIH score is zero, she verbally denies weakness. Told me this is my business & I have to get everything together before they come take me. HS meds given a bit early as we were expecting ambulance here between 8-8:30 tonight. 2100: Patient transfered to [facility] via ALS, Ambulance drivers here around 2044. Report given to nurse, copy of chart sent with her. She has working IV to RAC, EMS nurse flushed with saline before leaving room. Tele removed. EMS applying their own monitor for transfer. Pt remains Ox3, denies questions/concerns. All belongings gathered and sent with her. Aware she is going to [facility] to [address] room 316.
== END 2018-04-02 21:00 | disposition short-term general hospital (02) | DRG 69 ==
LOC: ED 22:08 → AC 04-02 02:26
PROVIDERS: Admitting Provider Family Medicine; Emergency Provider Emergency Medicine; Family Provider Family Medicine; PCP Family Medicine; Visit Provider Family Medicine
DX: G45.9 Transient cerebral ischemic attack, unspecified (principal); I65.23 Occlusion and stenosis of bilateral carotid arteries; I10 Essential (primary) hypertension; E78.5 Hyperlipidemia, unspecified; Z87.891 Personal history of nicotine dependence; F32.9 Major depressive disorder, single episode, unspecified; F41.9 Anxiety disorder, unspecified
CPT/HCPCS: 36591; 70450; 70496; 70498; 80048; 80053; 81003; 84484; 85025; 85610; 85730; 93005; 96360; 96361; 99283; 99285; 99291; G0378; Q9967

== ENCOUNTER → 2018-05-23 11:07 | Outpatient (CLI) | payer MEDICARE, SELFPAY ==
[2018-04-02 03:12] VITALS: BMI 25.7
--- NOTE | 2018-05-23 | DI.US.S_ITS ---
PROCEDURE: US CAROTID DOPPLER BI INDICATIONS: Cerebral infarction due to unspecified occlusion TECHNIQUE: Color and pulse Doppler interrogation was performed of both carotid systems, with image documentation and velocity measurements. COMPARISON: [facility], , CAROTID ARTERY DOPPLER BILAT, 09/11/2008, 9:04. FINDINGS: Stenosis calculations are based on SRU (Society of Radiologists in Ultrasound) criteria. Right side: Brachial blood pressure: 137/75 mm Hg. Common carotid artery peak systolic velocity: 75 cm/sec. Internal carotid artery peak systolic velocity: 125 cm/sec. Internal carotid artery end diastolic velocity: 27 cm/sec. External carotid artery peak systolic velocity: 43 cm/sec. ICA/CCA peak systolic ratio: 1.7. Sahu scale imaging description: Mild soft and calcific plaque Percent internal carotid artery stenosis: 50-69% stenosis.. Vertebral artery: Flow direction is antegrade. Left side: Brachial blood pressure: 127/81 mm Hg. Common carotid artery peak systolic velocity: 81 cm/sec. Internal carotid artery peak systolic velocity: 1 1 cm/sec. External carotid artery peak systolic velocity: 168 cm/sec. ICA/CCA peak systolic ratio: 1.6. Sahu scale imaging description: Mild calcific and soft plaque Percent internal carotid artery stenosis: 50-69% stenosis. Vertebral artery: Flow direction is antegrade. IMPRESSION: 50-69% stenosis at the proximal internal carotid arteries bilaterally. Vertebral arterial flow is antegrade in direction and normal and phasicity. Dictated by: Ko Longoria M.D. on 05/23/2018 at 12:54 Approved by: Ko Longoria M.D. on 05/23/2018 at 12:56
== END ==
PROVIDERS: PCP Family Medicine; Visit Provider Family Medicine
DX: I65.23 Occlusion and stenosis of bilateral carotid arteries (principal)
CPT/HCPCS: 93880

== ENCOUNTER 2018-05-24 10:15 | Outpatient (RCR) | payer MEDICARE, SELFPAY ==
[2018-04-02 03:12] VITALS: BMI 25.7
--- NOTE | 2018-05-24 11:56 | PT.OIE ---
Current Diagnoses Other specified disorders of temporomandibular joint (05/24/18) Past Medical History (Last Updated 04/02/18 @ 02:19 by Jaron Hernandez MD) CVA (cerebral vascular accident) (Acute) Hyperlipidemia (Acute) Hypertension (Acute) TIA (transient ischemic attack) (Acute) Past Surgical History (Last Updated 04/02/18 @ 02:19 by Jaron Hernandez MD) No history of previous surgery (Acute) Provider Visit Care Team Role Provider Type Gerardo Friedman MD Primary Care Provider Physician Specialty: Family Practice Address: [address] [place] [address], [id number] Email: Attending Provider Specialty: Address: Phone: Fax: Email: Physical Therapy Initial Evaluation PT-OP-A Visit Information Start: 05/24/18 07:24 Freq: Status: Active Protocol: Document 05/24/18 10:34 [facility] (Rec: 05/24/18 11:41 [facility] [id number]) Out-Patient Physical Therapy Visit Information Visit Information Visit Type Initial Evaluation Visit Start Time 10:35 Visit Stop Time 11:20 Total Visit Minutes 45 Visit Number 1/10 Number of UTILITY PIPE LAYER Visits 0 PT-OP-B Current Condition Start: 05/24/18 07:24 Freq: Status: Active Protocol: Document 05/24/18 10:34 [facility] (Rec: 05/24/18 11:41 [facility] [id number]) Current Condition History of Current Condition History of Current Condition Pt reports after R carotid artery surgery 04/12/28. Pt reports when she first woke up , she could not talk. Feels like something squirts up her mouth but she has a sharp radiating pain from bottom of jaw and goes up to TMJ. Reports L side tooth gives her a problem but she cannot afford surgery now. Pt reports when eating or talking a lot by the time she shows a house, it hurts a lot. Reports issues with slurring words & chewing. REports she grinds her teeth and has reusable mouth guards that she uses when it really hurts Treatment Goals Patient/Caregiver Goals Be able to do job & go out to eat PT-OP-C Subjective Start: 05/24/18 07:24 Freq: Status: Active Protocol: Document 05/24/18 10:34 [facility] (Rec: 05/24/18 11:41 [facility] [id number]) OP-PT Pain Assessment Location Jaw Pain Location Details R side Description Shooting Variations/Patterns at first got inc ringing & CORADO but went away; current CORADO d/t anyeurism Other Pain Aggravating Factors eating, talking Pain Alleviating Factors Cold Other Pain Alleviating Factors splint PT-OP-F Manual Assessment Start: 05/24/18 07:24 Freq: Status: Active Protocol: Document 05/24/18 10:34 [facility] (Rec: 05/24/18 11:41 [facility] [id number]) Manual Assessments Soft Tissue Assessment Soft Tissue Mobility Assessment tightness throughout R side of jaw (masseter, diagastric, ptyergoid) Joint Mobility Assessment Joint Mobility Assessment Full TMJ ROM opening & deviation, clicking with R lat deviation PT-OP-J Posture/Palpation/Skin Start: 05/24/18 07:24 Freq: Status: Active Protocol: Document 05/24/18 10:34 [facility] (Rec: 05/24/18 11:56 [facility] [id number]) Posture Evaluation Comments Posture Comments forward head & neck & shoulders w/inc kyphosis PT-OP-Q Treatments Start: 05/24/18 07:24 Freq: Status: Active Protocol: Document 05/24/18 10:34 [facility] (Rec: 05/24/18 11:56 [facility] [id number]) Therapeutic Exercises Sitting Exercises relax Sitting Exercise Name jaw relaxed positioning deviation Sitting Exercise Name deviation Side bilateral Reps/Minutes 5 sec hold x2 resisted open Sitting Exercise Name resisted jaw opening Reps/Minutes 3 jaw opening Sitting Exercise Name isometric hold in neutral & open position Reps/Minutes 5 sec hold x3 ea PT-OP-T Assessment and Plan Start: 05/24/18 07:24 Freq: Status: Active Protocol: Document 05/24/18 10:34 [facility] (Rec: 05/24/18 11:56 [facility] [id number]) Physical Therapy Assessment Rehab Potential Rehabilitation Potential Good Evaluation Complexity Number of Personal Factors/Comorbidities 3 or More Number of Body Systems Impaired 4 or More Clinical Presentation at Evaluation Stable Impairments Impairments Edema Functional Activities Functional Mobility Pain Posture ROM Soft Tissue Mobility Strength Goals eating Short Term Goal (STG) Pt will be indep with HEP STG Duration 06/23/18 Mcc Goal (LTG) Pt will be able to chew without pain. LTG Duration 07/24/18 posture Mcc Goal (LTG) Pt will present with only mild postural limitations. LTG Duration 07/24/18 Assessment Summary Assessment Pt presents with R sided TMJ pain with inc R sided mm tension, impaired posture, and pain w/functional activties. Physical Therapy Plan Frequency and Duration Frequency of Treatment 1x/Week Duration of Treatment 2 months Plan of Care Start Date 05/24/18 Plan of Care End Date 07/24/18 Next Visit Focus/Plan Next Note Type Treatment Note Next Visit Plan posture mike kang, JAYMIE, review HEP.
--- NOTE | 2018-05-24 11:56 | PT.OPPOC ---
Current Diagnoses Other specified disorders of temporomandibular joint (05/24/18) Provider Visit Care Team Role Provider Type Gerardo Friedman MD Primary Care Provider Physician Specialty: Family Practice Address: [address] [place] [address], [address] Email: Attending Provider Specialty: Address: Phone: Fax: Email: Plan Of Care PT-OP-T Assessment and Plan Start: 05/24/18 07:24 Freq: Status: Active Protocol: Document 05/24/18 10:34 [facility] (Rec: 05/24/18 11:56 [facility] [id number]) Physical Therapy Assessment Rehab Potential Rehabilitation Potential Good Evaluation Complexity Number of Personal Factors/Comorbidities 3 or More Number of Body Systems Impaired 4 or More Clinical Presentation at Evaluation Stable Impairments Impairments Edema Functional Activities Functional Mobility Pain Posture ROM Soft Tissue Mobility Strength Goals eating Short Term Goal (STG) Pt will be indep with HEP STG Duration 06/23/18 Jail Goal (LTG) Pt will be able to chew without pain. LTG Duration 07/24/18 posture Jail Goal (LTG) Pt will present with only mild postural limitations. LTG Duration 07/24/18 Assessment Summary Assessment Pt presents with R sided TMJ pain with inc R sided mm tension, impaired posture, and pain w/functional activties. Physical Therapy Plan Frequency and Duration Frequency of Treatment 1x/Week Duration of Treatment 2 months Plan of Care Start Date 05/24/18 Plan of Care End Date 07/24/18 Next Visit Focus/Plan Next Note Type Treatment Note Next Visit Plan posture mike kang, JAYMIE, review HEP. Plan of Care Dates Plan of Care Start Date 05/24/18 Plan of Care End Date 07/24/18 Please Sign and Return: I have reviewed this Plan of Care and certify that the skilled therapy services above are required to meet the patient?s needs. Physician Signature Date Printed Name and Credentials Clinical Instructor Signature Printed Name and Credentials
--- NOTE | 2018-10-04 07:56 | PT.OPDS ---
Current Diagnoses Other specified disorders of temporomandibular joint (05/24/18) Provider Visit Care Team Role Provider Type Gerardo Friedman MD Primary Care Provider Physician Specialty: Family Practice Address: [address] [place] [address], [address], [place], [address] Email: [email or web address] Attending Provider Specialty: Address: Phone: Fax: Email: Visit Number Visit Number 02/22 Discharge Summary PT-OP-B Current Condition Start: 05/24/18 07:24 Freq: Status: Active Protocol: Document 05/24/18 10:34 [facility] (Rec: 05/24/18 11:41 [facility] [id number]) Current Condition History of Current Condition History of Current Condition Pt reports after R carotid artery surgery 04/12/28. Pt reports when she first woke up , she could not talk. Feels like something squirts up her mouth but she has a sharp radiating pain from bottom of jaw and goes up to TMJ. Reports L side tooth gives her a problem but she cannot afford surgery now. Pt reports when eating or talking a lot by the time she shows a house, it hurts a lot. Reports issues with slurring words & chewing. REports she grinds her teeth and has reusable mouth guards that she uses when it really hurts Treatment Goals Patient/Caregiver Goals Be able to do job & go out to eat PT-OP-C Subjective Start: 05/24/18 07:24 Freq: Status: Active Protocol: Document 05/24/18 10:34 [facility] (Rec: 05/24/18 11:41 [facility] [id number]) OP-PT Pain Assessment Location Jaw Pain Location Details R side Description Shooting Variations/Patterns at first got inc ringing & CORADO but went away; current CORADO d/t anyeurism Other Pain Aggravating Factors eating, talking Pain Alleviating Factors Cold Other Pain Alleviating Factors splint PT-OP-F Manual Assessment Start: 05/24/18 07:24 Freq: Status: Active Protocol: Document 05/24/18 10:34 [facility] (Rec: 05/24/18 11:41 [facility] [id number]) Manual Assessments Soft Tissue Assessment Soft Tissue Mobility Assessment tightness throughout R side of jaw (masseter, diagastric, ptyergoid) Joint Mobility Assessment Joint Mobility Assessment Full TMJ ROM opening & deviation, clicking with R lat deviation PT-OP-J Posture/Palpation/Skin Start: 05/24/18 07:24 Freq: Status: Active Protocol: Document 05/24/18 10:34 [facility] (Rec: 05/24/18 11:56 [facility] [id number]) Posture Evaluation Comments Posture Comments forward head & neck & shoulders w/inc kyphosis PT-OP-T Assessment and Plan Start: 05/24/18 07:24 Freq: Status: Active Protocol: Document 10/04/18 07:55 [facility] (Rec: 10/04/18 07:56 [facility] [id number]) Physical Therapy Plan Discharge Physical Therapy Discharge Reasons Patient Request Discharge Comments Pt cancelled all appointments and asked for d/c from PT. She is planning to start speech therapy.
== END 2018-10-05 09:20 | disposition home or self-care (01) ==
LOC: PHYS 10:15
PROVIDERS: PCP Family Medicine
DX: M26.69 Other specified disorders of temporomandibular joint (principal)
CPT/HCPCS: 97110; 97162

== ENCOUNTER 2018-06-19 10:14 | Outpatient (RCR) | payer MEDICARE, SELFPAY ==
[2018-04-02 03:12] VITALS: BMI 25.7
--- NOTE | 2018-07-11 11:56 | ST.OPTN ---
Care Team Visit Care Team Role Provider Type Gerardo Friedman MD Attending Provider Physician Primary Care Provider Address: [address] [place] [address], [id number] [employer] Treatment Note [employer] Clinical Instructor Line Start: 06/19/18 12:34 Freq: Status: Active Protocol: Document 06/19/18 16:54 LNK (Rec: 06/19/18 16:58 LNK [id number]) Clinical Instructor Signature Clinical Instructor Clinical Instructor Yes: Rhonda Will, PhD , [facility]-[employer] Treatment Note Start: 06/19/18 12:34 Freq: Status: Active Protocol: Document 07/11/18 11:45 LNK (Rec: 07/11/18 11:51 LNK [id number]) Speech Pathology Treatment Note Visit Type Note Type Discharge Summary General Information General Information Yolis was seen for a motor speech evaluation on 06/19/18. 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 Yolis displayed many characteristics of dysarthria such as experiencing a change in muscle tone, AMR and DDK rate differences, weakness of articulators, medical history, etc. While her impairment was noted to be mild during the morning evaluation, she noted that it may become more significant later in the day. She stated that her speech impairment impacts her ADLs greatly as she heavily relies on speaking for her job. Speech intervention was recommended in order to improve articulator strength and develop compensatory strategies to assist in her ADLs. Yolis was provided education around dysarthria, results of OME, and given exercises to try for a period of time. Yolis was asked to make a session in 3 weeks to discuss if there has been improvement or HEP needs to be adjusted if no progress is seen. Assessment Assessment of Improvement pt has cancelled all therapy appointments as she is scheduled for brain surgery in the near future. Will discharge. Plan Amount of Therapy Recommended No Further Therapy Frequency of Treatment No Further Therapy Therapy Recommendations Discharge from Speech Therapy
== END 2018-07-12 10:13 | disposition home or self-care (01) ==
LOC: SP 10:14
PROVIDERS: PCP Family Medicine; Visit Provider Family Medicine
DX: G45.9 Transient cerebral ischemic attack, unspecified (principal); I72.5 Aneurysm of other precerebral arteries; I63.9 Cerebral infarction, unspecified
CPT/HCPCS: 92522

== ENCOUNTER 2018-07-10 19:40 | Emergency (ER) | payer MEDICARE, SELFPAY ==
[2018-04-02 03:12] VITALS: BMI 25.7
[2018-07-10 19:54] VITALS: BP 161/78; PULSE 64; RESP 18; TEMP 36.6; O2SAT 100; BMI 25.8
--- NOTE | 2018-07-10 20:02 | PC.NURSE ---
assmt- pt reports she was eating cabbage and a piece I swallowed didn't go down, reports hx of trouble swallowing r/t previous stroke, epigastric pain, denies soa, speaking in full sentences, no drooling/vomiting
--- NOTE | 2018-07-10 20:12 | ED.URI ---
HPI - URI/Sore Throat General Chief Complaint: Upper Respiratory Symptoms Stated Complaint: STATES CABBAGE STUCK IN THROAT Time Seen by Provider: 07/10/18 19:52 Source: patient Mode of arrival: ambulatory Limitations: no limitations History of Present Illness HPI Narrative: Patient is a 68-year-old female who presents with possible esophageal foreign body. She says she was at a restaurant eating a taco with stranding cabbage. She feels like a piece of cabbage is stuck in her esophagus. I actually even gave her the Heimlich. She is able to swallow her own secretions she has had multiple glasses of water she feels like it has moved but still feels like it is stuck in her throat. She has no chest pain or shortness of breath. Related Data Home Medications Medication Instructions Recorded Confirmed alprazolam 1 mg PO PRN PRN 04/02/18 04/02/18 amlodipine 5 mg PO BID 04/02/18 04/02/18 atenolol 50 mg PO TID 04/02/18 04/02/18 atorvastatin 10 mg PO DAILY 04/02/18 04/02/18 benazepril 40 mg PO DAILY 04/02/18 04/02/18 citalopram 10 mg PO DAILY 04/02/18 04/02/18 Allergies Allergy/AdvReac Type Severity Reaction Status Date / Time NSAIDS (Non-Steroidal Allergy Verified 04/01/18 10:49 Anti-Inflamma Review of Systems Review of Systems GENERAL: Denies chills, fatigue, malaise, fever, sweats, travel HEENT: See HPI RESPIRATORY: Denies dyspnea, cough, wheezing, hemoptysis, sputum. CARDIOVASCULAR: Denies chest pain, palpitations, orthopnea, edema GASTROINTESTINAL: Denies nausea, vomiting, abdominal pain, diarrhea, constipation, melena. : Denies dysuria, frequency, incontinence, hematuria, urinary retention, flank pain. MUSCULOSKELETAL: Denies weakness, joint pain, or bony pain SKIN: No rash, no erythema, no pruritus NEUROLOGIC: Denies weakness, dizziness, headache, numbness, change in speech, confusion PSYCHIATRIC: No concerning psychosocial issues. 12 point review of systems is negative except for those stated above and HPI [facility] Medical History CVA (cerebral vascular accident) (Acute) Hyperlipidemia (Acute) Hypertension (Acute) TIA (transient ischemic attack) (Acute) Surgical History H/O carotid endarterectomy (Acute) No history of previous surgery (Acute) Family History (Updated 04/02/18 @ 02:20 by Jaron Hernandez MD) Mother CVA (cerebral vascular accident) Social History household members: friend(s) Smoking Status: Former smoker alcohol intake: current Family History Mother CVA (cerebral vascular accident) Social History household members: friend(s) Smoking Status: Former smoker alcohol intake: current Exam Initial Vital Signs Initial Vital Signs: Vital Signs Temperature 97.9 F 07/10/18 19:54 Pulse Rate 64 07/10/18 19:54 Respiratory Rate 18 07/10/18 19:54 Blood Pressure 161/78 H 07/10/18 19:54 Pulse Oximetry 100 07/10/18 19:54 GENERAL: Well-appearing female no acute distress HEENT: Head atraumatic,EOMI, pupils reactive, managing own 60] CARDIOVASCULAR: Regular rate and rhythm without murmurs, rubs or gallops. RESPIRATORY: Breath sounds equal bilaterally, no wheezes rales or rhonchi. Speaking in full sentences no difficulty ABDOMEN: Soft, nontender. Normoactive bowel sounds all 4 quadrants. No guarding or rebound. EXTREMITIES: Normal range of motion, no clubbing or edema. Neurovascularly intact NEUROLOGICAL: Alert and oriented x4.Normal gait and speech. Cranial nerves II through XII grossly intact. SKIN: Warm, dry, no laceration, no petechiae, no rashes or lesions. Course Orders Ordered: Discontinued Medications Glucagon (Glucagen) 1 mg IV NOW ONE Stop: 07/10/18 20:26 Last Admin: 07/10/18 20:38 Dose: 1 mg Pantoprazole Sodium (Protonix) 40 mg IV NOW ONE Stop: 07/10/18 20:26 Last Admin: 07/10/18 20:38 Dose: 40 mg Vital Signs - 8 hr 07/10/18 19:54 07/10/18 21:24 Temperature 97.9 F Pulse Rate 64 75 Respiratory Rate 18 16 Blood Pressure 161/78 H 163/86 H Pulse Oximetry 100 99 MDM - URI/Sore Throat MDM Narrative Medical decision making narrative: Patient has tried multiple liquids water, jules amandeep and now hot tea. It seems to be moving some. She has not vomited. At this time I recommend outpatient follow-up. Discharge Plan Departure Patient Disposition: Home Clinical Impression: Foreign body of esophagus Qualifiers: Encounter type: initial encounter Qualified Code(s): T18.108A - Unspecified foreign body in esophagus causing other injury, initial encounter Discharge Date/Time: 07/10/18 21:24 Interventions: ED Discharge Assessment Last Done: 07/10/18 21:24 Instructions: Steakhouse Syndrome Activity Restrictions/Additional Instructions: *You have been diagnosed with esophageal foreign body *What to do: Continue to increase fluid intake. You may require intervention if still having issues. *Continue to take medications as directed *Follow up with your primary care provider in 2-3 days *Return to ER if you should have inability to swallow any liquid at all, worsening symptoms or any new, worsening or concerning symptoms Prescriptions: No Action atorvastatin 10 mg Tablet 10 mg PO DAILY RF: 0 alprazolam 1 mg Tablet 1 mg PO PRN PRN (Reason: Anxiety) RF: 0 citalopram 10 mg Tablet 10 mg PO DAILY RF: 0 amlodipine 5 mg Tablet 5 mg PO BID RF: 0 benazepril 40 mg Tablet 40 mg PO DAILY RF: 0 atenolol 50 mg Tablet 50 mg PO TID RF: 0 Referrals: Gerardo Friedman MD [Primary Care Provider] -
[2018-07-10] MEDS: PANTOPRAZOLE 40 MG VIAL IV (20:38)
[2018-07-10] MEDS: GLUCAGON,HUMAN RECOMBINANT 1 MG/ML VIAL IV (20:38)
[2018-07-10 21:24] VITALS: BP 163/86; PULSE 75; RESP 16; O2SAT 99
== END 2018-07-10 21:24 | disposition home or self-care (01) ==
PROVIDERS: Emergency Provider Emergency Medicine; PCP Family Medicine
DX: T18.108A Unspecified foreign body in esophagus causing other injury, initial encounter (principal)
CPT/HCPCS: 36591; 96374; 96375; 99282; 99284; C9113; J1610

== ENCOUNTER 2018-10-08 13:08 | Emergency (ER) | payer MEDICARE, SELFPAY ==
[2018-04-02 03:12] VITALS: BMI 25.7
[2018-10-08] VITALS (7 sets, daily range): BP systolic 97–140; BP diastolic 52–73; PULSE 54–76; RESP 10–14; TEMP 36.9; O2SAT 97–99
--- NOTE | 2018-10-08 13:17 | DI.RAD.S_ITS ---
PROCEDURE: XR HUMERUS RT 2V INDICATIONS: fall w/ shoulder and arm pain TECHNIQUE: 2 views of the humerus were acquired. COMPARISON: [facility], CR, XR SHOULDER RT MIN 2V, 10/08/2018, 13:27. FINDINGS: The humeral head is dislocated on the anteroinferior aspect of the glenoid. No displaced fractures are appreciated. Degenerative changes of the chromic clavicular joint appear to be moderate in nature. The overlying soft tissues demonstrate areas of soft tissue edema within the axilla. IMPRESSION: Anterior right humerus dislocation from the glenohumeral joint. Dictated by: Remy Pisano M.D. on 10/08/2018 at 13:05 Approved by: Remy Pisano M.D. on 10/08/2018 at 13:06
--- NOTE | 2018-10-08 13:17 | DI.RAD.S_ITS ---
PROCEDURE: XR SHOULDER RT MIN 2V INDICATIONS: fall w/ shoulder and arm pain TECHNIQUE: 2 views of the shoulder were acquired. COMPARISON: None. FINDINGS: Bones: No fractures but there is an anterior subcoracoid right shoulder dislocation. No suspicious bony lesions. Visualized ribs appear intact. Soft tissues: No suspicious soft tissue calcifications. IMPRESSION: Anterior subcoracoid right shoulder dislocation without fracture. Dictated by: Ko Longoria M.D. on 10/08/2018 at 14:03 Approved by: Ko Longoria M.D. on 10/08/2018 at 14:04
--- NOTE | 2018-10-08 14:45 | ED_ITS ---
HPI - Extremity Injury (Upper) <NABIL Lee - Last Filed: 10/09/18 01:41> General Chief Complaint: Extremity Injury, Upper Stated Complaint: Possible broke rt arm/shoulder Time Seen by Provider: 10/08/18 13:22 Source: patient Mode of arrival: ambulatory Limitations: no limitations History of Present Illness HPI narrative: This is a 68-year-old female, smoker, who presents with right anterior shoulder pain radiating to elbow. Patient reports she had slipped on wet kitchen floor and fell on right arm with anterior extension 4 days ago. Patient states she has been in hospital several times this year and she avoided coming in to ER after the injury. Reports able to move her fingers and some numbness to middle finger. She reports flexion, extension of right arm increases pain. She currently takes Plavix after brain aneurysm surgery. Patient denies losing consciousness, vision change, severe headache, nausea or vomiting, cervical tenderness. Patient reports she has been using ice pack and warm pack last 4 days and Tylenol at home but the pain is not managed effectively so she is here today for an evaluation. Right dominant hand. Related Data Home Medications Medication Instructions Recorded Confirmed alprazolam 1 mg PO TID PRN 04/02/18 10/08/18 amlodipine 5 mg PO BID 04/02/18 10/08/18 atenolol 50 mg PO TID 04/02/18 10/08/18 atorvastatin 10 mg PO DAILY 04/02/18 10/08/18 benazepril 40 mg PO DAILY 04/02/18 10/08/18 citalopram 20 mg PO DAILY PRN 10/08/18 10/08/18 clopidogrel 75 mg PO DAILY 10/08/18 10/08/18 Previous Rx's Medication Instructions Recorded hydrocodone-acetaminophen [[place]] 1 tab PO Q6H PRN #10 tab 10/08/18 Allergies Allergy/AdvReac Type Severity Reaction Status Date / Time meperidine Allergy Severe Anaphylaxis Verified 10/08/18 13:17 NSAIDS (Non-Steroidal Allergy Severe Anaphylaxis Verified 10/08/18 13:16 Anti-Inflamma Review of Systems <NABIL Lee - Last Filed: 10/09/18 01:41> Review of Systems General: Denies fever, chills, fatigue, malaise, sweats. HEENT: Denies sinus pain, ear pain, sore throat, difficulty swallowing, dizziness. Respiratory: Denies dyspnea, cough, wheezing, hemoptysis, sputum. Cardiovascular: Denies chest pain, palpitations, orthopnea, edema. Gastrointestinal: Denies nausea, vomiting, abdominal pain, diarrhea, constipation, melena. : Denies dysuria, frequency, incontinence, hematuria, urinary retention. Musculoskeletal: See HPI Skin: Denies rash, skin lesions, or other. Neurologic: Denies weakness, headache, numbness, change in speech, confusion, seizures, incoordination. Psychiatric: No concerning psychosocial issues. 12-point review of systems is negative except for those stated above. PFSH <NABIL Lee - Last Filed: 10/09/18 01:41> Medical History (Updated 10/09/18 @ 01:09 by NABIL Lee) Brain aneurysm (Acute) CVA (cerebral vascular accident) (Acute) Hyperlipidemia (Acute) Hypertension (Acute) TIA (transient ischemic attack) (Acute) Surgical History H/O carotid endarterectomy (Acute) No history of previous surgery (Acute) Family History Mother CVA (cerebral vascular accident) Social History household members: friend(s) Smoking Status: Current every day smoker alcohol intake: current Family History Mother CVA (cerebral vascular accident) Social History household members: friend(s) Smoking Status: Current every day smoker alcohol intake: current Exam <NABIL Lee - Last Filed: 10/09/18 01:41> Narrative Exam Narrative: GEN: Alert, oriented x 3, well appearing and nourished, and in no acute distress. Head: Normal cephalic, atraumatic. No scalp or temporal tenderness, palpable mass or rash. EYES: Pupils are equal, round, and reactive to light and accommodation. Extraocular muscles are intact bilaterally. There is no subconjunctival hemorrhage, exudate and sclera non-icteric. ENT: Bilateral auditory canals and tympanic membranes intact. Hearing grossly intact. Nose without bleeding, purulent discharge. Mucous membrane moist, no mucosal lesion. Throat without erythema, tonsillar hypertrophy or exudate. Uvula in midline, airway patent. Neck: Trachea in midline. No JVD, non-tender without lymphadenopathy. No masses or thyroid megaly. Supple, non-tender and no meningeal signs. CARDIAC: Normal regular rate and rhythm without murmurs, gallops, or rubs. No chest wall tenderness. No peripheral edema, cyanosis or pallor. Capillary refill is less than 2 seconds. RESPIRATORY: Lungs are cleat to auscultate bilaterally. No cough, wheezes, rales, or rhonchi. No stridor, respiratory distress, increase work of breathing, or accessary muscle used. ABD: Abdomen soft, nontender and non-distended. No guarding or rebound tenderness to palpate. Bowel sounds are normal in all 4 quadrants. There is no palpable masses or organomegaly. SKIN: Warm, dry, normal color for patient. No erythema, lesions or rash over visible areas. BACK: Nontender without deformity or crepitance. No flank tenderness. NEUROLOGICAL: Alert and oriented to place, time and person. Sensation and motor function intact bilaterally. No facial droops, dysphasia. PSYCHIATRIC: Good judgement and reason, without hallucinations, abnormal affect or abnormal behaviors during the examination. Initial Vital Signs Initial Vital Signs: Vital Signs Temperature 98.5 F 10/08/18 13:14 Pulse Rate 55 L 10/08/18 13:14 Respiratory Rate 14 10/08/18 13:14 Blood Pressure 130/73 10/08/18 13:14 Pulse Oximetry 98 10/08/18 13:14 Extrem Right upper extremity: shoulder/upper arm Details: abnormal to inspection, tenderness, swelling, abnormal ROM Details: pain with active ROM, pain with passive ROM and with range as follows (able to move fingers and very limited bending of R elbow and forward flexion due to pain) and deformity Location: of the proximal humerus (proximal, anterio) and of the shoulder joint Location: anteriorly and hand Details: normal capillary refill, neurosensory exam normal Details: digital nerve sensory function normal and vascular exam Details: radial pulse present and normal capillary refill Left upper extremity: normal to inspection and full ROM Right lower extremity: normal to inspection and full ROM Left lower extremity: normal to inspection and full ROM <Yolis Deluca MD - Last Filed: 10/11/18 07:10> Initial Vital Signs Initial Vital Signs: Vital Signs Temperature 98.5 F 10/08/18 13:14 Pulse Rate 55 L 10/08/18 13:14 Respiratory Rate 14 10/08/18 13:14 Blood Pressure 130/73 10/08/18 13:14 Pulse Oximetry 98 10/08/18 13:14 Procedures <NABIL Lee - Last Filed: 10/09/18 01:41> Jaw Reduction Time Out Performed: Yes Pre-Treatment Medications Used: other (propofol) Technique used: downward anterior traction Reduction successful: Yes Patient Tolerated Procedure: Well Complications: none Additional Comments: Procedural sedation and closed reduction was done by Dr. Deluca Orthopedic Splinting/Casting Injury #1: Side: right Upper Extremity Injury Location: shoulder Upper Extremity Immobilizer: sling/shoulder immobilizer Post splinting neuro exam: intact Post splinting vascular exam: intact Placed by: Nursing Procedural Sedation Patient Age: Patient is 5yrs or older Consent signed: Yes Time out performed: Yes Indication: fracture/dislocation reduction ASA Class: III (TIA, smoker) Mallampati Airway Classification: Class I Time of Last PO Intake: 09:30 Preparation: division order technician applied, pulse oximeter, capnometry used, supplemental O2 applied, suction/airway equipment at bedside and IV secured IV Propofol dose (mg): 200 ED Sedation Level: Moderate (Concious) Patient Tolerated Procedure: Well Complications: none Interventions: Oxygen applied Additional Comments: Procedural sedation with closed reduction was done by Dr. Deluca Scores <NABIL Lee - Last Filed: 10/09/18 01:41> GCS [place] coma scale eye opening: Spontaneous [place] coma scale verbal response: Orientated [place] coma scale motor response: Obey commands [place] coma scale total score: 15 Nexus Score for C-Spine Focal Neurologic deficit present: No Midline spinal tenderness present: No Altered level of conciousness present: No Intoxication present: No Distracting Injury Present: Yes Nexus Criteria for C-spine: 1 Course <NABIL Lee - Last Filed: 10/09/18 01:41> Orders Ordered: Discontinued Medications Sodium Chloride (Normal Saline 0.9%) 1,000 mls @ 150 mls/hr IV CONT BILLY Last Infusion: 10/08/18 16:09 Dose: 0 mls/hr Documented by: Admin: 10/08/18 15:04 Dose: 150 mls/hr Documented by: RAMOS Propofol (Diprivan) 80 mg IV NOW ONE Stop: 10/08/18 14:52 Last Admin: 10/08/18 15:03 Dose: 80 mg Documented by: RAMOS Vital Signs - 8 hr 10/08/18 13:14 Temperature 98.5 F Pulse Rate 55 L Respiratory Rate 14 Blood Pressure 130/73 Pulse Oximetry 98 <Yolis Deluca MD - Last Filed: 10/11/18 07:10> Orders Ordered: Discontinued Medications Sodium Chloride (Normal Saline 0.9%) 1,000 mls @ 150 mls/hr IV CONT BILLY Last Infusion: 10/08/18 16:09 Dose: 0 mls/hr Documented by: Admin: 10/08/18 15:04 Dose: 150 mls/hr Documented by: RAMOS Propofol (Diprivan) 80 mg IV NOW ONE Stop: 10/08/18 14:52 Last Admin: 10/08/18 15:03 Dose: 80 mg Documented by: RAMOS Vital Signs - 8 hr 10/08/18 13:14 Temperature 98.5 F Pulse Rate 55 L Respiratory Rate 14 Blood Pressure 130/73 Pulse Oximetry 98 MDM - Extremity Injury (Upper) <NABIL Lee - Last Filed: 10/09/18 01:41> Differential Diagnosis Differential diagnosis: Likely dislocation of shoulder, fracture of humerus, fracture of clavicle and other (dislocation of humerus, strain of R shoulder and upper arm) Medical Records Attestation: I reviewed the patient's medical records. Imaging Data XR-Shoulder initial: Radiologist's impression: [address] [address] XRay Report Signed Patient: Yolis Hill AMR#: [id number] : 1Acct:[id number] Age/Sex: 68 / FDate of Service: 10/08/18 Loc: ED Accession Number: [id number] Procedure: XR shoulder RT min 2V Ordering Provider: Yolis Deluca MD PROCEDURE: XR SHOULDER RT MIN 2V INDICATIONS: fall w/ shoulder and arm pain TECHNIQUE: 2 views of the shoulder were acquired. COMPARISON: None. FINDINGS: Bones: No fractures but there is an anterior subcoracoid right shoulder dislocation. No suspicious bony lesions. Visualized ribs appear intact. Soft tissues: No suspicious soft tissue calcifications. IMPRESSION: Anterior subcoracoid right shoulder dislocation without fracture. Dictated by: Ko Longoria M.D. on 10/08/2018 at 14:03 Approved by: Ko Longoria M.D. on 10/08/2018 at 14:04 XR-Humerus R initial: Radiologist's impression: [address] [address] XRay Report Signed Patient: Yolis Hill AMR#: [id number] : 1Acct:[id number] Age/Sex: 68 / FDate of Service: 10/08/18 Loc: ED Accession Number: [id number] Procedure: XR humerus RT 2V Ordering Provider: Yolis Deluca MD PROCEDURE: XR HUMERUS RT 2V INDICATIONS: fall w/ shoulder and arm pain TECHNIQUE: 2 views of the humerus were acquired. COMPARISON: [facility], , XR SHOULDER RT MIN 2V, 10/08/2018, 13:27. FINDINGS: The humeral head is dislocated on the anteroinferior aspect of the glenoid. No displaced fractures are appreciated. Degenerative changes of the chromic clavicular joint appear to be moderate in nature. The overlying soft tissues demonstrate areas of soft tissue edema within the axilla. IMPRESSION: Anterior right humerus dislocation from the glenohumeral joint. Dictated by: Remy Pisano M.D. on 10/08/2018 at 13:05 Approved by: Remy Pisano M.D. on 10/08/2018 at 13:06 XR-Shoulder post reduction: Radiologist's impression: [address] [address] XRay Report Signed Patient: Yolis Hill AMR#: [id number] : 1Acct:[id number] Age/Sex: 68 / FDate of Service: 10/08/18 Loc: ED Accession Number: [id number] Procedure: XR humerus RT 2V Ordering Provider: Yolis Deluca MD PROCEDURE: XR HUMERUS RT 2V INDICATIONS: fall w/ shoulder and arm pain TECHNIQUE: 2 views of the humerus were acquired. COMPARISON: [facility], CR, XR SHOULDER RT MIN 2V, 10/08/2018, 13:27. FINDINGS: The humeral head is dislocated on the anteroinferior aspect of the glenoid. No displaced fractures are appreciated. Degenerative changes of the chromic clavicular joint appear to be moderate in nature. The overlying soft tissues demonstrate areas of soft tissue edema within the axilla. IMPRESSION: Anterior right humerus dislocation from the glenohumeral joint. Dictated by: Remy Pisano M.D. on 10/08/2018 at 13:05 Approved by: Remy Pisano M.D. on 10/08/2018 at 13:06 MDM Narrative Medical decision making narrative: Patient reports mechanical fall happened 4 days ago and she landed on anteriorly outstretched right arm. The physical exam showed prominent proximal humerus on right upper arm. The patient complained significant pain with very little active range of motion passive range of motion on right arm. Patient felt most comfortable when her right arm was mildly abducted and elevated. Distal radial pulse was present and patient reports some numbness to middle finger. X-ray was obtained and indicated anterior sub coracoid shoulder and humeral head dislocation without fractures. Kindly, affected arm was reduced with procedural sedation which conducted by Dr. Deluca, please see procedural note. Patient tolerated the procedure well and for affected arm was placed in sling/shoulder immobilizer. The patient reports the pain improved after the closed reduction was completed. Return precautions were discussed with the patient and patient was advised to follow up with orthopedist. Patient agrees with treatment plan and no further questions were expressed. Narcotic medication precautions were discussed with the patient. Discharge Plan Departure Patient Disposition: Home Clinical Impression: Anterior dislocation of humerus Qualifiers: Encounter type: initial encounter Laterality: right Qualified Code(s): S43.014A - Anterior dislocation of right humerus, initial encounter Anterior dislocation of right shoulder Qualifiers: Encounter type: initial encounter Qualified Code(s): S43.014A - Anterior dislocation of right humerus, initial encounter Discharge Date/Time: 10/08/18 16:20 Instructions: DI for Shoulder Dislocation Activity Restrictions/Additional Instructions: You have been diagnosed with [right anterior humeral head dislocation and sub coracoid shoulder dislocation without fracture and this has been reduced with the procedural sedation. Please continue to use shoulder immobilizer to prevent dislocation again]. What to do: *Take your medications as directed. You can continue to take [id number]-[id number] Tylenol as needed for discomfort and for severe pain use hydrocodone that was prescribed. This may cause drowsiness, sleepiness, constipation so please take precaution and not to drive, drink alcohol, or to operate heavy equipments. *Follow up with your primary care provider and orthopedist in 2-3 days, call for an appointment. Let them know you were seen in the ED and that we asked you to be seen in follow up. *Return to ED if you have any new, worsening, or concerning symptoms, such as [ tingling numbness to her hands, weakness to the limb, severe pain, chest pain, difficulty breathing, any acute concerns]. Prescriptions: New hydrocodone-acetaminophen [[place]] 5-325 mg tablet 1 tab PO Q6H PRN (Reason: pain) Qty: 10 RF: 0 No Action clopidogrel 75 mg tablet 75 mg PO DAILY RF: 0 citalopram 20 mg tablet 20 mg PO DAILY PRN (Reason: anxiety or depression) RF: 0 atorvastatin 10 mg Tablet 10 mg PO DAILY RF: 0 alprazolam 1 mg Tablet 1 mg PO TID PRN (Reason: Anxiety) RF: 0 amlodipine 5 mg Tablet 5 mg PO BID RF: 0 benazepril 40 mg Tablet 40 mg PO DAILY RF: 0 atenolol 50 mg Tablet 50 mg PO TID RF: 0 Referrals: [facility] [Outside] Gerardo Friedman MD [Primary Care Provider] -
[2018-10-08] MEDS: PROPOFOL 200 MG/20 ML VIAL 80 MG IV (15:03)
[2018-10-08] MEDS: SODIUM CHLORIDE 0.9% 1,000 ML 150 ML IV (15:04)
--- NOTE | 2018-10-08 15:13 | DI.RAD.S_ITS ---
PROCEDURE: XR SHOULDER LT 1V INDICATIONS: post reduction TECHNIQUE: 1 views of the shoulder were acquired. COMPARISON: [facility], CR, XR SHOULDER RT MIN 2V, 10/08/2018, 13:27. FINDINGS: Bones: Single view demonstrates reduction of previous anterior shoulder dislocation. There is slight appearance of the inferior subluxation. Severe acromioclavicular degenerative narrowing is present. No visualized fracture. Soft tissues: No suspicious soft tissue calcifications. IMPRESSION: Interval reduction with slight anterior subluxation of previous anterior dislocation. No fractures identified on single view. As clinically indicated, full shoulder series may be obtained for further evaluation of potential fracture. Dictated by: Trina Sharpe M.D. on 10/08/2018 at 15:36 Approved by: Trina Sharpe M.D. on 10/08/2018 at 15:37
--- NOTE | 2018-10-08 15:23 | PC.NURSE ---
Patient required 200mg IV propofol for reduction. Patient placed in sling and post reduction xray obtained.
== END 2018-10-08 16:20 | disposition home or self-care (01) ==
PROVIDERS: Emergency Provider Nurse Practitioner Family; PCP Family Medicine
DX: S43.014A Anterior dislocation of right humerus, initial encounter (principal)
CPT/HCPCS: 23650; 73020; 73030; 73060; 94770; 96360; 99152; 99283; 99284; J2704

== ENCOUNTER → 2018-12-18 13:47 | Outpatient (CLI) | payer MEDICARE, SELFPAY ==
[2018-04-02 03:12] VITALS: BMI 25.7
--- NOTE | 2018-12-18 | DI.MRI.S_ITS ---
PROCEDURE: MR SHOULDER RT WO CON INDICATIONS: Right shoulder pain TECHNIQUE: Noncontrast oblique coronal T2 fast spin echo with fat saturation, oblique sagittal T1 spin echo and T2 fast spin echo with fat saturation, axial T1 spin echo and T2 fast spin echo with fat saturation through the shoulder. COMPARISON: [facility], MR, SHOULDER RT W/ CONTRAST, 05/07/2004, 9:00. FINDINGS: Image quality: Diagnostic Rotator cuff: There is a complete tear present involving the supraspinatus tendon that measures at least 4 cm in transverse dimension and probably involves the leading edge of the anterior distal infraspinatus tendon. There also probably is extension across the rotator interval to involve the superior fibers of the distal subscapularis tendon. The torn supraspinatus tendon fragments are retracted by up to approximately 4.2 cm. There is corresponding supraspinatus muscle atrophy. Prominent thickening and increased signal involving the subscapularis tendon is present with areas of predominantly moderate grade partial-thickness tearing. There may be tear and extending along the myotendinous junction. There is also thickening and increased signal involving the infraspinatus tendon with a probable full-thickness tearing along the anterior fibers of this tendon. No significant atrophy is evident involving the subscapularis, infraspinatus, or teres minor muscles. The teres minor tendon is grossly unremarkable. Bones and bursae: No acute fracture, dislocation, or suspicious osseous lesion is evident involving the osseous structures of the right shoulder. There are moderate degenerative changes of the glenohumeral joint, which have progressed in the interim. Severe degenerative changes of the acromioclavicular joint are also evident, which also have progressed in the interim. There is a prominent glenohumeral joint effusion that communicates with the subacromial subdeltoid bursa. Capsule and soft tissues: Evaluation of the labrum and the glenohumeral ligaments is suboptimal without intra-articular contrast. There is heterogeneity along the superior labrum, which may be related to chronic labral degeneration. No large detached labral fragments are identified. There is a large amount of fluid contained within the biceps tendon sheath (long head). There is increased signal and thickening involving the intra-articular portion of this tendon, best appreciated on the distal aspect of the bicipital groove. There is moderate edema about the inferior glenohumeral ligament with fluid extending beyond the inferior joint capsule. The middle and superior glenohumeral ligaments are not adequately appreciated. IMPRESSION: 1. Complete supraspinatus tendon tear with associated muscle atrophy and probably tendon retraction is compatible with a chronic process. 2. Predominantly low to moderate grade partial-thickness tearing and prominent tendinopathy of the infraspinatus and subscapularis tendons is present. The possibility of small full-thickness tears near their junctions with the supraspinatus tendon is difficult to exclude. 3. Moderate to severe degenerative changes of of the right shoulder joint have progressed in the interim. 4. Large glenohumeral joint effusion with fluid contained within the subacromial subdeltoid bursa. Please correlate clinically to exclude bursitis. 5. Prominent tendinopathy involving the long head of the biceps tendon with possible tenosynovitis. 6. Probable inferior glenohumeral ligament partial-thickness tear. Dictated by: Remy Pisano M.D. on 12/18/2018 at 17:00 Approved by: Remy Pisano M.D. on 12/18/2018 at 17:05
== END ==
PROVIDERS: Family Provider Orthopaedic Surgery; PCP Family Medicine
DX: M25.511 Pain in right shoulder (principal); M75.121 Complete rotator cuff tear or rupture of right shoulder, not specified as traumatic; M62.511 Muscle wasting and atrophy, not elsewhere classified, right shoulder; M25.411 Effusion, right shoulder
CPT/HCPCS: 73221

== ENCOUNTER 2019-01-10 09:27 | Emergency (ER) | payer MEDICARE, SELFPAY ==
[2018-04-02 03:12] VITALS: BMI 25.7
[2019-01-10] VITALS (7 sets, daily range): BP systolic 163–220; BP diastolic 92–107; PULSE 76–83; RESP 16–24; TEMP 36.4; O2SAT 97–100; BMI 25.8
--- NOTE | 2019-01-10 09:47 | DI.RAD.S_ITS ---
PROCEDURE: XR SHOULDER LT MIN 2V INDICATIONS: fell out of a truck TECHNIQUE: 3 views of the shoulder were acquired. COMPARISON: [facility], CR, XR HUMERUS LT 2V, 01/10/2019, 9:45. [facility], CR, XR SHOULDER LT 1V, 10/08/2018, 15:18. [facility], CR, XR SHOULDER RT MIN 2V, 10/08/2018, 13:27. FINDINGS: Bones: There is a left anterior shoulder dislocation. There is an apparent fracture deformity seen. No definite bony [place] fracture can be seen. The visualized ribs are unremarkable. No suspicious lytic or blastic lesions are seen. Soft tissues: No suspicious soft tissue calcifications. The visualized lung demonstrates an unremarkable appearance. IMPRESSION: Anterior shoulder dislocation, with an apparent Hill-Sachs deformity. Following reduction, please consider a dedicated CT or shoulder MRI for further evaluation (assuming that there is no contraindication). Dictated by: Isaac Santos M.D. on 01/10/2019 at 9:15 Approved by: Isaac Santos M.D. on 01/10/2019 at 9:16
--- NOTE | 2019-01-10 09:47 | DI.RAD.S_ITS ---
PROCEDURE: XR HUMERUS LT 2V INDICATIONS: fell out of a truck TECHNIQUE: 2 views of the humerus were acquired. COMPARISON: [facility], CR, XR HUMERUS RT 2V, 10/08/2018, 13:27. [facility], [place], XR SHOULDER LT MIN 2V, 01/10/2019, 9:45. FINDINGS: Bones: There is a left anterior shoulder dislocation seen and there is an apparent Hill-Sachs deformity seen. Soft tissues: No suspicious soft tissue calcifications. The visualized lung demonstrates an unremarkable appearance. IMPRESSION: Left anterior shoulder dislocation, with an apparent associated Hill-Sachs deformity. Dictated by: Isaac Santos M.D. on 01/10/2019 at 9:17 Approved by: Isaac Santos M.D. on 01/10/2019 at 9:17
--- NOTE | 2019-01-10 10:12 | ED_ITS ---
HPI - Extremity Injury (Upper) General Chief Complaint: Extremity Injury, Upper Stated Complaint: fell out of truck Time Seen by Provider: 01/10/19 09:59 Source: patient Mode of arrival: Family Vehicle Limitations: no limitations History of Present Illness HPI narrative: Patient comes emergency department complaining of left shoulder pain after falling out of a truck last night. The patient states that she caught herself on outstretched arm and that she has had dislocation previously as a child. Patient has also had dislocations of the other shoulder. The patient denies any other injuries. She states that she did not come to the emergency department initially because she was not sure she was dislocated and she was afraid we would be busy with sicker patients because of the holiday season. Patient denies numbness or tingling in her left hand. She denies pain or swelling in her distal left upper extremity. No right upper extremity pain or swelling. No other complaints at this time. Related Data Home Medications Medication Instructions Recorded Confirmed alprazolam 1 mg PO TID PRN 04/02/18 10/08/18 amlodipine 5 mg PO BID 04/02/18 10/08/18 atenolol 50 mg PO TID 04/02/18 10/08/18 atorvastatin 10 mg PO DAILY 04/02/18 10/08/18 benazepril 40 mg PO DAILY 04/02/18 10/08/18 citalopram 20 mg PO DAILY PRN 10/08/18 10/08/18 clopidogrel 75 mg PO DAILY 10/08/18 10/08/18 Previous Rx's Medication Instructions Recorded hydrocodone-acetaminophen [[place]] 1 tab PO Q6H PRN #10 tab 10/08/18 hydrocodone-acetaminophen 1 tab PO Q4H PRN #10 tab 01/10/19 Allergies Allergy/AdvReac Type Severity Reaction Status Date / Time meperidine Allergy Severe Anaphylaxis Verified 10/08/18 13:17 NSAIDS (Non-Steroidal Allergy Severe Anaphylaxis Verified 10/08/18 13:16 Anti-Inflamma Review of Systems Constitutional Constitutional: Denies chills, Denies fatigue, Denies fever(s), Denies frequent falls, Denies lethargy and Denies weakness Eyes Eyes: Denies change in vision, Denies eye discharge, Denies irritation and Denies loss of vision ENT Ears, Nose, Mouth, and Throat: Denies change in voice, Denies dizziness, Denies neck pain, Denies sore throat and Denies throat swelling Cardiovascular Cardiovascular: Denies chest pain, Denies irregular heart rhythm, Denies lightheadedness, Denies palpitations, Denies dyspnea, Denies dyspnea on exertion and Denies orthopnea Respiratory Respiratory: Denies cough, Denies dyspnea, Denies dyspnea on exertion and Denies wheezing Gastrointestinal Gastrointestinal: Denies abdominal pain, Denies change in bowel habits, Denies diarrhea, Denies nausea and Denies vomiting Genitourinary Genitourinary: Denies hematuria, Denies flank pain, Denies urinary incontinence and Denies urinary urgency Musculoskeletal Musculoskeletal: Denies back pain, Denies muscle weakness, Denies neck pain, Denies numbness and Denies tingling Comments: Left shoulder pain Integumentary/Breasts Skin/Breast: Denies pruritus, Denies erythema, Denies rash and Denies wounds Neurologic Neurologic: Denies behavioral changes, Denies confusion, Denies dizziness, Denies frequent falls, Denies loss of vision, Denies numbness, Denies tingling and Denies weakness Psychiatric Psychiatric: Denies anxiety, Denies behavioral changes, Denies confusion, Denies depression, Denies homicidal ideation and Denies suicidal ideation Endocrine Endocrine: Denies fatigue, Denies flushing and Denies palpitations Hematologic/Lymphatic Hematologic/Lymphatic: Denies easy bruising Allergic/Immunologic Allergic/Immunologic: Denies urticaria, Denies throat swelling and Denies wheezing Patient History Medical History Brain aneurysm (Acute) CVA (cerebral vascular accident) (Acute) Hyperlipidemia (Acute) Hypertension (Acute) TIA (transient ischemic attack) (Acute) Surgical History H/O carotid endarterectomy (Acute) No history of previous surgery (Acute) Family History Mother CVA (cerebral vascular accident) Social History household members: friend(s) Smoking Status: Current every day smoker alcohol intake: current alcohol intake frequency: 0-2 drinks per day Substance Use Type: marijuana Exam Initial Vital Signs Initial Vital Signs: Vital Signs Temperature 97.6 F 01/10/19 09:41 Pulse Rate 76 01/10/19 09:41 Respiratory Rate 18 01/10/19 09:41 Blood Pressure 167/106 H 01/10/19 09:41 Pulse Oximetry 100 01/10/19 09:41 Const General: cooperative and well developed Nutritional Appearance: well nourished Orientation: alert, awake, oriented x3 and not confused HENWV Head: normocephalic and atraumatic Ears: external ears normal Nose: external nose normal and No nasal discharge Face and sinus: face symmetric and No dry mucous membranes Mouth: oral mucosae normal and moist mucous membranes Teeth and gingiva: dentition normal Eyes General: appearance normal, both eyes and all related structures Eyelids: eyelids normal Conjunctivae: conjunctivae normal Sclera: sclerae normal Pupils: PERRL EOM: EOM intact bilaterally Neck Neck: normal visual inspection, trachea midline, No lymphadenopathy, No midline deformity and No JVD Lymphatic: No lymphedema Chest Chest: normal inspection of the chest Resp Effort & Inspection: normal respiratory effort, able to speak in complete sentences, no respiratory distress and no use of accessory muscles Auscultation: clear to auscultation bilaterally, no rales, no rhonchi and no wheezes Cardio Rate: regular rate Rhythm: regular rhythm Heart Sounds: no click, no gallops, no murmurs and no rubs Pulses: normal peripheral pulses GI Inspection: non-distended Palpation: soft, no hepatosplenomegaly, No guarding, No pulsatile mass and No tender Auscultation: normal bowel sounds Back/Spine/Pelvis Back: No CVA tenderness Cervical Spine: cervical ROM normal and No pain with cervical ROM Thoracic/Lumbar Spine: thoracic and lumbar spine normal to inspection Skin General: no rashes or lesions noted, No jaundice and No petechiae Neuro General: alert, awake, oriented x3 and no focal motor deficits Cranial Nerves: CN's II-XI intact bilaterally Cognition: normal cognition Speech: speech normal Motor: muscle tone normal throughout Sensory Exam: no sensory deficits noted Extrem General: no pedal edema and no calf tenderness Other: Patient has concavity of her left deltoid area with palpable dislocation of humeral head. Psych Appearance: well kempt Mental Status: mental status grossly normal Attitude: cooperative Thought Content: normal and suicidality Judgment: judgment good Procedures Orthopedic Joint Reduction Joint #1: Time Out Performed: Yes Side: left Joint Reduction Location: shoulder Analgesia: procedural sedation Shoulder Technique Used (if applicable): traction/counter-traction Technique used: traction/counter-traction Post-reduction neuro exam: intact Post-reduction vascular: intact Post Reduction X-Ray Obtained: Yes Post Reduction X-Ray Results: reduced Splint Applied: Yes Patient Tolerated Procedure: Well Course Course Course Narrative: Patient was sent for an x-ray series of the left shoulder and humerus and found to have a dislocation. I did perform informed consent with the patient regarding procedural sedation and shoulder reduction. IV was placed and patient was given propofol after being placed on the press set up and respiratory therapist arrival. Patient was sedated and shoulder was reduced, as noted above, without complications. Repeat x-ray showed humeral head to be in good placement. Patient recovered uneventfully from her procedural sedation, and demonstrated intact neurovascular exam. We have discussed home management of the symptoms, as well as the usual indications for return. We have also discussed the need for orthopedic follow-up. Orders Ordered: Discontinued Medications Sodium Chloride (Normal Saline 0.9%) 1,000 mls @ 1,000 mls/hr IV BOLUS ONE Stop: 01/10/19 11:14 Last Admin: 01/10/19 10:45 Dose: 1,000 mls/hr Documented by: YONNY Propofol (Diprivan) 100 mg IV NOW ONE Stop: 01/10/19 10:16 Last Admin: 01/10/19 10:48 Dose: 100 mg Documented by: CVANCE Vital Signs Vital signs: Vital Signs - 8 hr 01/10/19 09:41 Temperature 97.6 F Pulse Rate 76 Respiratory Rate 18 Blood Pressure 167/106 H Pulse Oximetry 100 MDM - Extremity Injury (Upper) Medical Records Attestation: I reviewed the patient's medical records. Lab Data Labs: Point of Care Testing Test Results Not applicable Imaging Data Left shoulder x-ray: Radiologist's impression: PROCEDURE: XR SHOULDER LT MIN 2V INDICATIONS: fell out of a truck TECHNIQUE: 3 views of the shoulder were acquired. COMPARISON: [facility], CR, XR HUMERUS LT 2V, 01/10/2019, 9:45. [facility], CR, XR SHOULDER LT 1V, 10/08/2018, 15:18. [facility], CR, XR SHOULDER RT MIN 2V, 10/08/2018, 13:27. FINDINGS: Bones: There is a left anterior shoulder dislocation. There is an apparent fracture deformity seen. No definite bony Bankart fracture can be seen. The visualized ribs are unremarkable. No suspicious lytic or blastic lesions are seen. Soft tissues: No suspicious soft tissue calcifications. The visualized lung demonstrates an unremarkable appearance. IMPRESSION: Anterior shoulder dislocation, with an apparent Hill-Sachs deformity. Following reduction, please consider a dedicated CT or shoulder MRI for further evaluation (assuming that there is no contraindication). Dictated by: Isaac Santos M.D. on 01/10/2019 at 9:15 Approved by: Isaac Santos M.D. on 01/10/2019 at 9:16 PROCEDURE: XR SHOULDER LT 1V INDICATIONS: post-reduction TECHNIQUE: 1 view of the shoulder were acquired. COMPARISON: [facility], CR, XR SHOULDER LT MIN 2V, 01/10/2019, 9:45. [facility], , XR SHOULDER LT 1V, 10/08/2018, 15:18. [facility], , XR HUMERUS LT 2V, 01/10/2019, 9:45. FINDINGS: Bones: On this post reduction view, the left humeral head is appropriately overlying the glenoid fossa. Soft tissues: No suspicious soft tissue calcifications. IMPRESSION: Unremarkable shoulder relocation film. If clinically appropriate, please consider a dedicated CT study to evaluate for Hill-Sachs deformity/bony Bankart fractures. Dictated by: Isaac Santos M.D. on 01/10/2019 at 10:39 Approved by: Isaac Santos M.D. on 01/10/2019 at 10:40 X-ray humerus: Radiologist's impression: PROCEDURE: XR HUMERUS LT 2V INDICATIONS: fell out of a truck TECHNIQUE: 2 views of the humerus were acquired. COMPARISON: [facility], CR, XR HUMERUS RT 2V, 10/08/2018, 13:27. [facility], , XR SHOULDER LT MIN 2V, 01/10/2019, 9:45. FINDINGS: Bones: There is a left anterior shoulder dislocation seen and there is an apparent Hill-Sachs deformity seen. Soft tissues: No suspicious soft tissue calcifications. The visualized lung demonstrates an unremarkable appearance. IMPRESSION: Left anterior shoulder dislocation, with an apparent associated Hil l-Sachs deformity. Dictated by: Isaac Santos M.D. on 01/10/2019 at 9:17 Approved by: Isaac Santos M.D. on 01/10/2019 at 9:17 Discharge Plan Departure Patient Disposition: Home Clinical Impression: Dislocation of shoulder region Qualifiers: Encounter type: initial encounter Laterality: left Qualified Code(s): S43.005A - Unspecified dislocation of left shoulder joint, initial encounter Discharge Date/Time: 01/10/19 12:22 Instructions: DI for Shoulder Dislocation, DI for Moderate Sedation Activity Restrictions/Additional Instructions: Your shoulder has been put back in place excessively, as evidenced by your repeat shoulder x-ray after the procedure. Please wear the sling for the next 2 weeks to allow your shoulder to stabilize. You may take the pain medication, as needed. Prescriptions: New hydrocodone-acetaminophen 5-325 mg tablet 1 tab PO Q4H PRN (Reason: pain) Qty: 10 RF: 0 No Action clopidogrel 75 mg tablet 75 mg PO DAILY RF: 0 citalopram 20 mg tablet 20 mg PO DAILY PRN (Reason: anxiety or depression) RF: 0 hydrocodone-acetaminophen [[place]] 5-325 mg tablet 1 tab PO Q6H PRN (Reason: pain) Qty: 10 RF: 0 atorvastatin 10 mg Tablet 10 mg PO DAILY RF: 0 alprazolam 1 mg Tablet 1 mg PO TID PRN (Reason: Anxiety) RF: 0 amlodipine 5 mg Tablet 5 mg PO BID RF: 0 benazepril 40 mg Tablet 40 mg PO DAILY RF: 0 atenolol 50 mg Tablet 50 mg PO TID RF: 0 Referrals: Gerardo Friedman MD [Primary Care Provider] -
[2019-01-10] MEDS: SODIUM CHLORIDE 0.9% 1,000 ML 1000 ML IV (10:45)
[2019-01-10] MEDS: PROPOFOL 200 MG/20 ML VIAL 100 MG IV (10:48)
--- NOTE | 2019-01-10 11:04 | DI.RAD.S_ITS ---
PROCEDURE: XR SHOULDER LT 1V INDICATIONS: post-reduction TECHNIQUE: 1 view of the shoulder were acquired. COMPARISON: [facility], CR, XR SHOULDER LT MIN 2V, 01/10/2019, 9:45. [facility], CR, XR SHOULDER LT 1V, 10/08/2018, 15:18. [facility], CR, XR HUMERUS LT 2V, 01/10/2019, 9:45. FINDINGS: Bones: On this post reduction view, the left humeral head is appropriately overlying the glenoid fossa. Soft tissues: No suspicious soft tissue calcifications. IMPRESSION: Unremarkable shoulder relocation film. If clinically appropriate, please consider a dedicated CT study to evaluate for Hill-Sachs deformity/bony Bankart fractures. Dictated by: Isaac Santos M.D. on 01/10/2019 at 10:39 Approved by: Isaac Santos M.D. on 01/10/2019 at 10:40
== END 2019-01-10 12:22 | disposition home or self-care (01) ==
PROVIDERS: Emergency Provider Emergency Medicine; Family Provider Orthopaedic Surgery; PCP Family Medicine
DX: S43.005A Unspecified dislocation of left shoulder joint, initial encounter (principal); V87.8XXA Person injured in other specified noncollision transport accidents involving motor vehicle (traffic), initial encounter
CPT/HCPCS: 23650; 36415; 73020; 73030; 73060; 94770; 99152; 99283; 99285; J2704

== ENCOUNTER → 2019-06-27 14:36 | Outpatient (CLI) | payer MEDICARE, SELFPAY ==
[2018-04-02 03:12] VITALS: BMI 25.7
--- NOTE | 2019-06-27 | DI.RAD.S_ITS ---
PROCEDURE: XR KNEE RT 3V INDICATIONS: RIGHT KNEE PAIN X 1 MONTH POST FALL TECHNIQUE: 3 views of the knee were acquired. COMPARISON: None. FINDINGS: Bones: No fractures or dislocations. No suspicious bony lesions. Moderate tricompartmental osteoarthritis is seen. Soft tissues: No joint effusion. No suspicious soft tissue calcifications. IMPRESSION: Moderate tricompartmental osteoarthritis. No fracture or dislocation. Dictated by: Tod Bliss M.D. on 06/27/2019 at 16:08 Approved by: Tod Bliss M.D. on 06/27/2019 at 16:08
== END ==
PROVIDERS: Family Provider Orthopaedic Surgery; PCP Family Medicine; Referring Provider Family Medicine; Visit Provider Family Medicine
DX: M25.561 Pain in right knee (principal); M17.11 Unilateral primary osteoarthritis, right knee
CPT/HCPCS: 73562

== ENCOUNTER 2020-09-23 13:00 | Outpatient (RCR) | payer MEDICARE, SELFPAY ==
[2018-04-02 03:12] VITALS: BMI 25.7
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
--- NOTE | 2020-08-03 11:47 | PT-OP ANOTE ---
Pt same day cancel, was up all night sick.
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
--- NOTE | 2020-08-21 15:49 | PT.OPPOC ---
Addendum entered and electronically signed by Angelina Jorgensen PT 09/23/20 14:53: Resend to provider to sign Original Note: Physical, Occupational & Speech Therapy At [facility] Current Diagnoses Recurrent dislocation, unspecified shoulder (08/21/20) Pain in right knee (08/21/20) Muscle spasm of back (08/21/20) Visit Care Team Role Provider Type Caleb Doran MD Attending Provider Physician Primary Care Provider Referring Provider Specialty: [facility] Address: [facility] [place], [address] Email: [email or web address] Plan Of Care PT-OP-T Assessment and Plan Start: 06/30/20 14:33 Freq: Status: Active Protocol: Document 08/21/20 13:05 MB (Rec: 08/21/20 13:42 MB [id number]) Physical Therapy Assessment Rehab Potential Rehabilitation Potential Good Evaluation Complexity Number of Personal Factors/Comorbidities 1-2 Number of Body Systems Impaired 1-2 Clinical Presentation at Evaluation Stable Impairments Impairments Functional Activities,Strength Goals 5 Contact Manager Goal (LTG) Pt will perform progressive HEP with I including pool exercises (PT to develop in the clinic while pool therapy is not available), flexibility , strengthening and balance exercises to improve strength, balance and function by . 08/21/20: Pt is performing scapular retraction and glute squeezes, diaphragm breathing, LE exercises in sitting, she has been performing side lying leg lifts LTG Duration 8 weeks 4 Contact Manager Goal (LTG) Pt will perform WNLs on a standardized balance test to decrease fall risk by 10/13/20. 08/21/20: Deferred formalized testing today. LTG Duration 8 weeks 3 Contact Manager Goal (LTG) Pt will gait train at least 1000 feet in 6 minutes with or without AD to improve community ambulation by . 08/21/20: Pt gait trains 926 feet in 6 minutes with cane in right hand. Pt has increased effort with gait and requires two rest sitting rest breaks with gait. Forward, flexed posture with decreased step- length and foot clearance, increased B knee valgus. LTG Duration 8 weeks 2 Custodial Goal (LTG) Pt will present with an improved LEF score to reflect no more than 35% impairment to improve locomotion and LE function by 10/13/20. 08/21/20: LEF score reflects 67. 5% impairments LTG Duration 8 weeks 1 Contact Manager Goal (LTG) Pt will present with an improved QuickDASH score to reflect no more than 20% impairment to improve UE function by 10/13/20. 08/21/20: QuickDASH score reflects 38.63% impairment LTG Duration 8 weeks Assessment Summary Assessment Pt reports progress with performing steps and not needing to take Tylenol in the afternoons since starting PT. She was able to mis-step off the curb and not fall. She con 't with weakness, imbalance and gait impairments and will benefit from ongoing PT to improve these. Will also work more on shoulder ROM as she can tolerate. Physical Therapy Plan Frequency and Duration Frequency of Treatment 2x/Week Duration of Treatment 8 weeks Plan of Care Start Date 08/21/20 Plan of Care End Date 10/13/20 Therapeutic Interventions Therapeutic Interventions Aquatic Therapy,Balance Training,Canalithic Repositioning,Coordination Training,Gait Training,Home Exercise Program,Joint Mobilizations,Manual Therapy, Neuromuscular Re-education, Orthotic/Prosthetic Management ,Patient/Caregiver Education, Self-Care/Home Management,Soft Tissue Mobilization,Taping, Therapeutic Activities, Therapeutic Exercises Modalities Cold Pack/Ice Massage,Electric Stimulation,Hot Packs, Ultrasound Next Visit Focus/Plan Next Note Type Treatment Note Next Visit Plan Buteyko breathing, further shoulder ROM, core progression , progress ankle weight exercises in standing if pt finds her weights Plan of Care Dates Plan of Care Start Date 08/21/20 Plan of Care End Date 10/13/20 Electronically Signed by: Angelina Jorgensen, PT 08/21/20 [id number] Please Sign and Return: I have reviewed this Plan of Care and certify that the skilled therapy services above are required to meet the patient?s needs. Physician Signature Date Printed Name and Credentials Clinical Instructor Signature Printed Name and Credentials
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
== END 2020-09-23 14:41 | disposition home or self-care (01) ==
LOC: PHYS 13:00
PROVIDERS: PCP Family Medicine; Referring Provider Family Medicine; Visit Provider Family Medicine
DX: M25.561 Pain in right knee (principal); M24.419 Recurrent dislocation, unspecified shoulder; M62.830 Muscle spasm of back
CPT/HCPCS: 97110; 97112; 97116; 97140; 97162; 97535

== ENCOUNTER → 2021-04-02 12:11 | Outpatient (CLI) | payer MEDICARE, SELFPAY ==
[2018-04-02 03:12] VITALS: BMI 25.7
--- NOTE | 2021-04-02 12:14 | DI.RAD.S_ITS ---
PROCEDURE: XR HAND LT MIN 3V INDICATIONS: LEFT HAND PAIN TECHNIQUE: 3 views of the hand(s) acquired. COMPARISON: None. FINDINGS: Bones: No fractures or dislocations. Carpal bones are normally aligned. No suspicious bony lesions. Polyarticular joint space narrowing with periarticular osteophytosis, most notably involving the 1st CMC joint as well as the 2nd DIP joint, 3rd PIP as well as the 4th PIP joints where there are prominent osteophytes. No erosive changes. Soft tissues: No suspicious soft tissue calcifications. IMPRESSION: Diffuse joint degeneration and no definitive bony erosions or acute bony abnormality seen. Dictated by: Shekhar Burgess [facility] Interpreted: Myles Helms MD on 04/02/2021 at 13:13 Transcribed by: BENJI on 04/02/2021 at 13:15 Approved by: Myles Helms M.D. on 04/02/2021 at 14:36
== END ==
PROVIDERS: PCP Family Medicine; Referring Provider Family Medicine; Visit Provider Family Medicine
DX: M19.042 Primary osteoarthritis, left hand (principal); M79.642 Pain in left hand
CPT/HCPCS: 73130

== ENCOUNTER → 2021-11-17 11:32 | Outpatient (CLI) | payer MEDICARE, SELFPAY ==
[2018-04-02 03:12] VITALS: BMI 25.7
[2021-11-17 13:52] LABS: Add Manual Diff / Slide Review NO; Basophils Absolute Auto 100 /uL (0-100); Basophils Percent Auto 0.8 % (0-2); Eosinophils Absolute Auto 300 /uL (0-450); Eosinophils Percent Auto 4.3 % (2-4); Hematocrit 40.9 % (36-46); Hemoglobin 13.3 g/dL (12.0-16.0); Lymphocytes Absolute Auto 2000 /uL (1100-4500); Lymphocytes Percent Auto 26.7 % (25-40); Mean Corpuscular HGB Conc 32.5 % (30-36); Mean Corpuscular Hemoglobin 27.6 PG (26-34); Mean Corpuscular Volume 84.9 fL (80-100); Monocytes Absolute Auto 700 /uL (0-900); Monocytes Percent Auto 8.9 % (3-14); Neutrophils Absolute Auto 4500 /uL (1500-7000); Neutrophils Percent Auto 59.3 % (50-75); Platelet Count 245 X10^3/uL (150-400); Red Blood Cell Count 4.81 X10^6/uL (4.0-5.2); Red Cell Distribution Width 14.8 % (11.6-14.8); White Blood Cell Count 7.7 X10^3/uL (4.5-11.0)
[2021-11-17 14:27] LABS: Alanine Aminotransferase 15 IU/L (<35); Albumin 4.1 g/dL (3.5-5.0); Albumin Globulin Ratio 1.4 (1.0-2.8); Alkaline Phosphatase 72 U/L (38-126); Aspartate Aminotransferase 27 IU/L (14-36); BUN Creatinine Ratio 17.3 (6-22); Bilirubin Total 0.3 mg/dL (0.2-1.3); Blood Urea Nitrogen 22 mg/dL (7-17); Carbon Dioxide 29 mmol/L (22-32); Chloride 105 mmol/L (98-107); Cholesterol 206 mg/dL (140-199); Estimated Glomerular Filt Rate 45 mL/min (>60); Glucose 87 mg/dL (80-110); HDL Cholesterol 101 mg/dL (40-60); HEMOLYSIS < 15 (0-50); LDL Cholesterol Calculated 92 mg/dL (<100); Sodium 140 mmol/L (137-145); Total Protein 7.1 g/dL (6.3-8.2); Triglycerides 64 mg/dL (35-150)
[2021-11-17 14:29] LABS: Potassium 6.2 mmol/L (3.4-5.1)
[2021-11-17 14:58] LABS: Thyroid Stimulating Hormone 2.24 uIU/mL (0.47-4.68)
== END ==
PROVIDERS: PCP Family Medicine; Referring Provider Family Medicine; Visit Provider Family Medicine
DX: I63.239 Cerebral infarction due to unspecified occlusion or stenosis of unspecified carotid artery (principal); E66.9 Obesity, unspecified; E78.00 Pure hypercholesterolemia, unspecified; I72.5 Aneurysm of other precerebral arteries; G45.9 Transient cerebral ischemic attack, unspecified; I63.9 Cerebral infarction, unspecified; I10 Essential (primary) hypertension
CPT/HCPCS: 36415; 80053; 80061; 84443; 85025

== ENCOUNTER → 2022-07-29 11:05 | Outpatient (CLI) | payer MEDICARE, SELFPAY ==
[2018-04-02 03:12] VITALS: BMI 25.7
--- NOTE | 2022-07-29 | DI.RAD.S_ITS ---
PROCEDURE: XR KNEE RT 3V INDICATIONS: KNEE PAIN TECHNIQUE: 3 views of the knee were acquired. COMPARISON: [facility], CR, XR KNEE RT 3V, 06/27/2019, 14:46. FINDINGS: Bones: No acute fractures or dislocations. No suspicious bony lesions. Moderate joint space narrowing is seen at the lateral femorotibial compartment with subchondral sclerosis and marginal osteophyte formation. Marginal osteophytes are also seen at the medial femorotibial compartment and there is subchondral osteophyte formation at the medial femoral condyle articular surface. Small marginal osteophytes are seen in the anterior compartment. Soft tissues: No joint effusion. No suspicious soft tissue calcifications. IMPRESSION: Tricompartmental osteoarthrosis within the right knee, which is most notable and moderate to severe in the lateral femorotibial compartment, although there is suspected focal full-thickness cartilage loss in the medial compartment given subchondral osteophyte formation. Approved by: Dimas Bejarano M.D. on 07/29/2022 at 12:44
--- NOTE | 2022-07-29 | DI.MG.S_ITS ---
BILATERAL DIGITAL SCREENING MAMMOGRAM 3D/2D WITH CAD: 07/29/2022 CLINICAL: Baseline exam by default. Routine screening. Family history of breast cancer. No prior exams were available for comparison. There are scattered areas of fibroglandular density in both breasts (category b / 25%-50% glandular tissue). Current study was also evaluated with a Computer Aided Detection (CAD) system. No significant masses, calcifications, or other findings are seen in either breast. IMPRESSION: NEGATIVE There is no mammographic evidence of malignancy. A 1 year screening mammogram is recommended. Based on the Tyrer Cuzick model (a risk assessment model) the patient's lifetime risk is 3.6% and her 10 year risk is 2.7%. According to the ACR, ACS, and NCCN guidelines, an annual breast MRI exam along with mammogram is recommended if the patient's lifetime risk is 20% or greater. This exam was interpreted at Station ID: [id number]. NOTE: For mammograms, a report in lay terms will be sent to the patient. Approximately 15% of breast malignancies will not be visualized mammographically. In the management of a palpable breast mass, a negative mammogram must not discourage biopsy of a clinically suspicious lesion. Electronically Signed By: Dhruv [email or web address]/liliane:07/29/2022 14:46:33 letter sent: Normal Exam ACR BI-RADS Category 1: Negative [id number]
== END ==
PROVIDERS: PCP Family Medicine; Referring Provider Family Medicine; Visit Provider Family Medicine
DX: Z12.31 Encounter for screening mammogram for malignant neoplasm of breast (principal); Z80.3 Family history of malignant neoplasm of breast; M25.561 Pain in right knee; M17.11 Unilateral primary osteoarthritis, right knee
CPT/HCPCS: 73562; 77063; 77067

== ENCOUNTER → 2023-12-07 14:11 | Outpatient (CLI) | payer MEDICARE, SELFPAY ==
[2018-04-02 03:12] VITALS: BMI 25.7
--- NOTE | 2023-12-07 14:14 | DI.MG.S_ITS ---
BILATERAL DIGITAL SCREENING MAMMOGRAM 3D/2D WITH CAD: 12/07/2023 CLINICAL: Routine screening. Family history of breast cancer. Comparison is made to exam dated: 07/29/2022 mammogram - [facility]. The breasts are heterogeneously dense, which may obscure small masses (category c / 51-75% glandular tissue). Current study was also evaluated with a Computer Aided Detection (CAD) system. There are benign calcifications in both breasts. No significant masses, calcifications, or other findings are seen in either breast. There has been no significant interval change. IMPRESSION: BENIGN There is no mammographic evidence of malignancy. A 1 year screening mammogram is recommended. Based on the Tyrer Cuzick model (a risk assessment model) the patient's lifetime risk is 5.2% and her 10 year risk is 4.2%. According to the ACR, ACS, and NCCN guidelines, an annual breast MRI exam along with mammogram is recommended if the patient's lifetime risk is 20% or greater. This exam was interpreted at Station ID: [id number]. NOTE: For mammograms, a report in lay terms will be sent to the patient. Approximately 15% of breast malignancies will not be visualized mammographically. In the management of a palpable breast mass, a negative mammogram must not discourage biopsy of a clinically suspicious lesion. Electronically Signed By: Dhruv mcarthur/liliane:12/08/2023 08:44:29 letter sent: Normal Exam ACR BI-RADS Category 2: Benign
--- NOTE | 2023-12-07 14:14 | DI.RAD.S_ITS ---
PROCEDURE: XR DEXA AXIAL SKELETON INDICATIONS: POST MENOPAUSAL/ROUTINE SCREENING COMPARISON: None. FINDINGS: Lumbar Spine: Bone mineral density 1.181 g/cm2, T score 1.2. Right Hip: Bone mineral density 0.633 g/cm2, T score -2.5. Right Femoral Neck: Bone mineral density 0.555 g/cm2, T score -2.6. Left Forearm: Bone mineral density 0.573 g/cm2, T score -2.0. Fracture Risk Calculation (when applicable): 10-year fracture risk of a major osteoporotic fracture 18 percent and of a hip fracture 8.2 percent. (T score greater or equal to -1.0 to: NORMAL) (T score from -1.1 to -2.4: OSTEOPENIA) (T score less than or equal to -2.5: OSTEOPOROSIS) IMPRESSION: Osteoporosis. Follow-up guidelines as follows: Osteoporosis: Consider a repeat DEXA and Vertebral Fracture Assessment (VFA) exam in 2 years or sooner if medically necessary, to reassess this patient's status. Osteopenia: Consider a repeat DEXA in 2-3 years to reassess this patient's status, or if there is a new clinical indication. Normal: Consider a repeat DEXA in 5 years or sooner, or if there is a new clinical indication. All treatment decisions require clinical judgment and consideration of individual patient factors, including patient preferences, comorbidities, previous drug use, risk factors not captured in the FRAX model (e.g., frailty, falls, vitamin D deficiency, increased bone turnover, interval significant decline in bone density ) and possible under- or over-estimation of fracture risk by FRAX. In addition, the NOF Guide recommends that FDA-approved medical therapies be considered in postmenopausal women and men age >= 50 years with a: * Hip or vertebral (clinical or morphometric) fracture * T-score of <=-2.5 at the spine or hip * Ten-year fracture probability by FRAX of >= 3% for hip fracture or >=20% for major osteoporotic fracture. People with diagnosed cases of osteoporosis or at high risk for fracture should have regular bone mineral density tests. For patients eligible for Medicare, routine testing is allowed once every 2 years. The testing frequency can be increased to one year for patients who have rapidly progressing disease, those who are receiving or discontinuing medical therapy to restore bone mass, or have additional risk factors. Dictated by: Myles Helms M.D. on 12/07/2023 at 15:45 Approved by: Myles Helms M.D. on 12/07/2023 at 15:47
== END ==
PROVIDERS: PCP Family Medicine; Referring Provider Family Medicine; Visit Provider Family Medicine
DX: Z12.31 Encounter for screening mammogram for malignant neoplasm of breast (principal); Z80.3 Family history of malignant neoplasm of breast; R92.333 Mammographic heterogeneous density, bilateral breasts; M81.0 Age-related osteoporosis without current pathological fracture; Z78.0 Asymptomatic menopausal state
CPT/HCPCS: 77063; 77067; 77080; 77081

== ENCOUNTER 2024-09-16 14:02 | Emergency (ER) | payer MEDICARE, SELFPAY ==
[2018-04-02 03:12] VITALS: BMI 25.7
[2024-09-16 14:26] VITALS: BP 112/57; PULSE 73; RESP 18; TEMP 36.8; O2SAT 98; BMI 25.2
--- NOTE | 2024-09-16 14:30 | DI.RAD.S_ITS ---
PROCEDURE: XR ELBOW RT MIN 3V INDICATIONS: fall, injury TECHNIQUE: 3 views of the elbow were acquired. COMPARISON: None. FINDINGS: Bones: No fractures or dislocations. No suspicious bony lesions. Soft tissues: No elbow joint effusion. No suspicious soft tissue calcifications. IMPRESSION: No acute bony abnormality or significant joint effusion. Dictated by: Des Goins M.D. on 09/16/2024 at 14:52 Approved by: Des Goins M.D. on 09/16/2024 at 14:52
[2024-09-16] MEDS: LIDOCAINE 2% INJ SDV 5ML 10 ML INJ (15:09)
--- NOTE | 2024-09-16 15:23 | ED_ITS ---
<Statement entered by Cody Leary, DO - 09/16/24 18:22> Co-sign statement: I was available for consultation during this patient's emergency department visit. This chart is being signed by myself for administrative purposes only. I do not have direct contact with this patient during this visit. They were seen independently by the [facility]. HPI - Extremity Injury (Upper) General Chief Complaint: Extremity Injury, Upper Stated Complaint: sent from PCP fell, right elbow pain x 6 days Time Seen by Provider: 09/16/24 14:16 Source: patient Mode of arrival: Ambulatory History of Present Illness HPI narrative: 74-year-old female presents to the ED status post a right elbow injury sustained 5 days prior to arrival. Patient had a mechanical slip and fall in her bathroom when she accidentally stepped on a towel on the floor. Patient struck her right elbow, sustained a laceration just distal to the elbow joint. Patient's tetanus is up-to-date. There is full range of motion. Patient complains of mild in in the elbow. Denies numbness, tingling, weakness. Related Data Home Medications ?Medication ?Instructions ?Recorded ?Confirmed alprazolam 1 mg tablet 1 mg PO TID PRN Anxiety 03/1610/08/18 amlodipine 5 mg tablet 5 mg PO BID 04/02/18 9 atenolol 50 mg tablet 50 mg PO TID 04/02/18 atorvastatin 10 mg tablet 10 mg PO DAILY 04/02/1809/14 benazepril 40 mg tablet 40 mg PO DAILY 04/02/1809/14 citalopram 20 mg tablet 20 mg PO DAILY PRN anxiety o r 10/08/18 10/08/18 depression clopidogrel 75 mg tablet 75 mg PO DAILY 10/08/1809/14 Previous Rx's ?Medication ?Instructions ?Recorded hydrocodone 5 mg-acetaminophen 325 1 tab PO Q6H PRN pa in #10 tabs 10/08/18 mg tablet ([place]) hydrocodone 5 mg-acetaminophen 325 1 tab PO Q4H PRN pa in #10 tabs 01/10/19 mg tablet cephalexin 500 mg capsule 500 mg PO QID 5 days #20 cap s 09/16/24 Allergies Allergy/AdvReac Type Severity Reaction Status Date / Time meperidine (From Demerol) Allergy Verified 09/16/24 14:24 NSAIDS (Non-Steroidal Allergy Throat Verified 09/16/24 14:24 Anti-Inflamma swelling Review of Systems Constitutional Constitutional: Denies chills, Denies fatigue, Denies fever(s), Denies frequent falls, Denies lethargy and Denies weakness Eyes Eyes: Denies change in vision, Denies eye discharge, Denies irritation and Denies loss of vision ENT Ears, Nose, Mouth, and Throat: Denies change in voice, Denies dizziness, Denies neck pain, Denies sore throat and Denies throat swelling Cardiovascular Cardiovascular: Denies chest pain, Denies irregular heart rhythm, Denies lightheadedness, Denies palpitations, Denies dyspnea, Denies dyspnea on exertion and Denies orthopnea Respiratory Respiratory: Denies cough, Denies dyspnea, Denies dyspnea on exertion and Denies wheezing Gastrointestinal Gastrointestinal: Denies abdominal pain, Denies change in bowel habits, Denies diarrhea, Denies nausea and Denies vomiting Musculoskeletal Musculoskeletal: Denies neck pain and Denies numbness Integumentary/Breasts Skin/Breast: Denies pruritus, Denies erythema, Denies rash and Reports wounds Comments: Right elbow laceration Neurologic Neurologic: Denies behavioral changes, Denies confusion, Denies dizziness, Denies frequent falls, Denies loss of vision, Denies numbness and Denies weakness Psychiatric Psychiatric: Denies anxiety, Denies behavioral changes, Denies confusion, Denies depression, Denies homicidal ideation and Denies suicidal ideation Endocrine Endocrine: Denies fatigue, Denies flushing and Denies palpitations Hematologic/Lymphatic Hematologic/Lymphatic: Denies easy bruising Allergic/Immunologic Allergic/Immunologic: Denies urticaria, Denies throat swelling and Denies wheezing Patient History Medical History Brain aneurysm TIA (transient ischemic attack) Hyperlipidemia CVA (cerebral vascular accident) Hypertension Surgical History H/O carotid endarterectomy No history of previous surgery Family History Mother CVA (cerebral vascular accident) Social History household members: friend(s) Smoking Status: Current every day smoker alcohol intake: current Smoking Status: Current every day smoker tobacco type: vaping alcohol intake frequency: 0-2 drinks per day Exam Narrative Exam Narrative: General:?cooperative, healthy appearing and comfortable [facility] Head:?normal to inspection Ears:?hearing grossly normal bilaterally Nose:?external nose normal Face and sinus:?normal facial exam and sinuses nontender Mouth:?oral mucosae normal Throat:?posterior oropharynx normal Eyes General:?appearance normal, both eyes and all related structures Neck Neck:?normal visual inspection and no lymphadenopathy noted Resp Effort & Inspection:?normal respiratory effort Auscultation:?clear to auscultation bilaterally Cardio Rate:?regular rate Rhythm:?regular rhythm Integumentary 5cm laceration just distal to the right elbow that appears to have started healing already. No signs of infection, bleeding. Full range of motion. Strength and sensation intact. Neurovascularly intact. Neuro General:?patient alert, patient awake and patient oriented x3 Initial Vital Signs Initial Vital Signs: Vital Signs Temperature 98.3 F 09/16/24 14:26 Pulse Rate 73 09/16/24 14:26 Respiratory Rate 18 09/16/24 14:26 Blood Pressure 112/57 L 09/16/24 14:26 Pulse Oximetry 98 09/16/24 14:26 Oxygen Delivery Method Room Air 09/16/24 14:26 Procedures Laceration Repair Laceration 1: Site: upper extremity Side (If applicable): right Size (cm): 5 Description: linear Depth: simple, single layer Local Anesthetic: lidocaine 2% and with bicarb Amount of anesthesia used (mL): 5 Pre-repair: wound explored, irrigated extensively and deep structures intact Skin layer closed with: nylon Skin layer suture size: 4-0 Number of sutures: 6 Technique: simple, interrupted Course Orders Ordered: ED Orders 09/16/24 14:30 XR elbow RT min 3V Stat Discontinued Medications Lidocaine HCl (Lidocaine 2% Inj Sdv 5ml) 10 ml INJ NOW ONE Stop: 09/16/24 15:06 Last Admin: 09/16/24 15:09 Dose: 5 ml Documented By: ANTHONY Vital Signs Vital signs: Vital Signs - 8 hr 09/16/24 14:26 Temperature 98.3 F Pulse Rate 73 Respiratory Rate 18 Blood Pressure 112/57 L Pulse Oximetry 98 Oxygen Delivery Method Room Air MDM - Extremity Injury (Upper) MDM Narrative Medical decision making narrative: 74-year-old female presents to the ED status post a right elbow injury sustained 5 days prior to arrival. Concern for fracture/dislocation versus laceration versus other. Will obtain x-ray. X-ray without acute findings. Although patient's laceration is too old for closure, given the extent of the laceration will repair for better chance of healing. Will prescribe antibiotics as a prophylactic measure. Laceration was sutured. Discussed with patient that given the age of the injury, the injury might not approximate well. Wound care instructions, suture removal discussed with patient. ED return precautions discussed with patient. Patient verbalized understanding. Medical records reviewed: Yes Discharge Plan Departure Patient Disposition: Home Clinical Impression: Laceration Instructions: DI for Laceration Repair Activity Restrictions/Additional Instructions: You were evaluated in the emergency department for an elbow injury. The laceration was repaired with 6 sutures. The sutures will need to be removed in 7-10 days. You may return to the ED, go to the walk-in clinic or your PCP's office for suture removal. Given the age of the injury, you may have incomplete healing. Please do follow-up with your primary care doctor to re-evaluate. You are being prescribed antibiotics as a precautionary measure. You may wash the injury with slope and water gently, completely dry before re-dressing. Please watch for signs of infection including worsening redness, swelling, pain, discharge. Return to the ED if you note any signs of infection. Prescriptions: New cephalexin 500 mg capsule 500 mg PO QID 5 Days Qty: 20 0RF No Action clopidogrel 75 mg tablet 75 mg PO DAILY Patient Comments: TK 1 T PO D citalopram 20 mg tablet 20 mg PO DAILY PRN (Reason: anxiety or depression) Patient Comments: TK 1 T PO D FOR DEPRESSION OR ANXIETY hydrocodone-acetaminophen [[place]] 5-325 mg tablet 1 tab PO Q6H PRN (Reason: pain) Qty: 10 0RF Rx Instructions: please avoid taking this with Xanax. It can cause drowsiness. atorvastatin 10 mg Tablet 10 mg PO DAILY alprazolam 1 mg Tablet 1 mg PO TID PRN (Reason: Anxiety) amlodipine 5 mg Tablet 5 mg PO BID benazepril 40 mg Tablet 40 mg PO DAILY Rx Instructions: PM atenolol 50 mg Tablet 50 mg PO TID hydrocodone-acetaminophen 5-325 mg tablet 1 tab PO Q4H PRN (Reason: pain) Qty: 10 0RF Referrals: Caleb Doran MD [Primary Care Provider, Family Practice] Stand Alone Forms: Patient Portal/API
[2024-09-16 16:21] VITALS: BP 118/62; PULSE 78; RESP 16; TEMP 36.8; O2SAT 98
== END 2024-09-16 16:22 | disposition home or self-care (01) ==
PROVIDERS: Emergency Provider Student in an Organized Health Care Education/Training Program; PCP Family Medicine
DX: S51.011A Laceration without foreign body of right elbow, initial encounter (principal); W01.0XXA Fall on same level from slipping, tripping and stumbling without subsequent striking against object, initial encounter
CPT/HCPCS: 12002; 73080; 99283